=== PATIENT | male | born 1990 | race Hispanic/Latino ===

== ENCOUNTER 2018-08-26 21:26 | Emergency (ER) | payer SELFPAY ==
[~2018-08-26] VITALS: Ht 177.8 cm; Wt 62.1 kg
--- OUTSIDE RECORDS SUMMARY | 2018-08-26 21:28 | XMS REPORT ---
Author Author [facility] Address Unknown Phone Unavailable Care Team Providers Care Paster Supervisor Name Role Phone Unavailable Unavailable Payers Payer Name Policy Type Policy Number Effective Date Expiration Date Problems This patient has no known problems. Allergies, Adverse Reactions, Alerts Allergy Name Allergy Type Status Severity Reaction(s) Onset Date Inactive Date Treating Clinician Comments phenytoin DA Active SV 2018-05-02 00:00:00 divalproex sodium DA Active MO 2018-05-02 00:00:00 phenytoin DA Active SV 2017-09-02 00:00:00 divalproex sodium DA Active MO 2017-09-02 00:00:00 Medications This patient has no known medications. Results Test Description Test Time Test Comments Text Results Atomic Results Result Comments BASIC METABOLIC PANEL 2018-08-10 20:40:00 SODIUM (test code=NA) 139 mmol/L 136-145 POTASSIUM (test code=K) 3.7 mmol/L 3.5-5.1 CHLORIDE (test code=CL) 106.0 mmol/L 98-107 CARBON DIOXIDE (test code=CO2) 25.0 mmol/L 21-32 ANION GAP (test code=GAP) 11.7 10-20 GLUCOSE (test code=GLU) 139 mg/dL 74-106 BLOOD UREA NITROGEN (test code=BUN) 12 mg/dL 7-18 GLOMERULAR FILTRATION RATE (test code=GFR) > 60 mL/min >=60 Estimated GFR by using Modified MDRD formula.Chronic kidney disease is defined as either kidney damageor GFR <60 mL/min/1.73 m2 for >3 months. CREATININE (test code=CREAT) 1.00 mg/dL 0.7-1.3 BUN/CREATININE RATIO (test code=BUN/CREA) 12.0 10-20 CALCIUM (test code=CA) 9.1 mg/dL 8.5-10.1 CBC W/O [id number] 20:35:00* Test Item Value Reference Range Comments WHITE BLOOD CELL (test code=WBC) 6.9 K/mm3 4.5-12.5 RED BLOOD CELL (test code=RBC) 4.02 mill/mm3 4.0-5.8 HEMOGLOBIN (test code=HGB) 13.7 gram/dL 13.0-17.5 HEMATOCRIT (test code=HCT) 40.3 % 42.0-52.0 MEAN CELL VOLUME (test code=MCV) 100.2 fL 80-98 MEAN CELL HGB (test code=MCH) 34.1 picogram 27.0-33.0 MEAN CELL HGB CONCETRATION (test code=MCHC) 34.0 gram/dL 33.0-36.0 RED CELL DISTRIBUTION WIDTH (test code=RDW) 12.9 % 11.6-16.2 PLATELET COUNT (test code=PLT) 207 K/mm3 150-450 MEAN PLATELET VOLUME (test code=MPV) 10.3 fL 6.7-11.0 [id number] 21:00:00* Test Item Value Reference Range Comments GLUBED (test code=GLUBED) 78 mg/dL 74-106 Performed by certified mitering machine operator at [facility] BASIC METABOLIC [id number] 19:01:00* Test Item Value Reference Range Comments SODIUM (test code=NA) 140 mmol/L 136-145 POTASSIUM (test code=K) 3.8 mmol/L 3.5-5.1 CHLORIDE (test code=CL) 105.0 mmol/L 98-107 CARBON DIOXIDE (test code=CO2) 26.0 mmol/L 21-32 ANION GAP (test code=GAP) 12.8 10-20 GLUCOSE (test code=GLU) 189 mg/dL 74-106 BLOOD UREA NITROGEN (test code=BUN) 7 mg/dL 7-18 GLOMERULAR FILTRATION RATE (test code=GFR) > 60 mL/min >=60 Estimated GFR by using Modified MDRD formula.Chronic kidney disease is defined as either kidney damageor GFR <60 mL/min/1.73 m2 for >3 months. CREATININE (test code=CREAT) 0.90 mg/dL 0.7-1.3 BUN/CREATININE RATIO (test code=BUN/CREA) 7.4 10-20 CALCIUM (test code=CA) 8.9 mg/dL 8.5-10.1 BASIC METABOLIC [id number] 18:53:00* Test Item Value Reference Range Comments SODIUM (test code=NA) 140 mmol/L 136-145 POTASSIUM (test code=K) 3.8 mmol/L 3.5-5.1 CHLORIDE (test code=CL) 105.0 mmol/L 98-107 CARBON DIOXIDE (test code=CO2) mmol/L 21-32 ANION GAP (test code=GAP) 10-20 GLUCOSE (test code=GLU) mg/dL 74-106 BLOOD UREA NITROGEN (test code=BUN) mg/dL 7-18 GLOMERULAR FILTRATION RATE (test code=GFR) mL/min >=60 CREATININE (test code=CREAT) mg/dL 0.7-1.3 BUN/CREATININE RATIO (test code=BUN/CREA) 10-20 CALCIUM (test code=CA) 8.9 mg/dL 8.5-10.1 CBC W/O [id number] 18:37:00* Test Item Value Reference Range Comments WHITE BLOOD CELL (test code=WBC) 6.1 K/mm3 4.5-12.5 RED BLOOD CELL (test code=RBC) 4.49 mill/mm3 4.0-5.8 HEMOGLOBIN (test code=HGB) 15.3 gram/dL 13.0-17.5 HEMATOCRIT (test code=HCT) 45.7 % 42.0-52.0 MEAN CELL VOLUME (test code=MCV) 101.8 fL 80-98 MEAN CELL HGB (test code=MCH) 34.1 picogram 27.0-33.0 MEAN CELL HGB CONCETRATION (test code=MCHC) 33.5 gram/dL 33.0-36.0 RED CELL DISTRIBUTION WIDTH (test code=RDW) 12.4 % 11.6-16.2 PLATELET COUNT (test code=PLT) 213 K/mm3 150-450 MEAN PLATELET VOLUME (test code=MPV) 10.0 fL 6.7-11.0
[2018-08-26 22:12] LABS: BASOPHILS # (AUTO) 0.1 (0.0-0.1); BASOPHILS % 0.7 % (0.0-1.0); EOSINOPHILS # (AUTO) 0.1 (0.0-0.4); EOSINOPHILS % 0.9 % (0.0-6.0); HEMATOCRIT 41.4 % (38.2-49.6); HEMOGLOBIN 14.4 g/dL (14.0-18.0); LYMPHOCYTES # (AUTO) 0.6 (1.0-3.2); LYMPHOCYTES % 8.8 % (18.0-39.1); MEAN CORPUSCULAR HEMOGLOBIN 34.6 pg (28-32); MEAN CORPUSCULAR HGB CONC 34.8 g/dL (31-35); MEAN CORPUSCULAR VOLUME 99.5 fL (81-99); MONOCYTES # (AUTO) 0.8 (0.2-0.8); MONOCYTES % 11.7 % (4.4-11.3); NEUTROPHILS # (AUTO) 5.4 (2.1-6.9); NEUTROPHILS % 77.3 % (38.7-80.0); PLATELET COUNT 216 x10e3/uL (140-360); RED BLOOD COUNT 4.16 x10e6/uL (4.3-5.7); RED CELL DISTRIBUTION WIDTH 12.4 % (11.7-14.4)
[2018-08-26 22:17] LABS: AMPHETAMINES SCREEN,URINE NEGATIVE (NEGATIVE); BENZODIAZEPINES SCREEN,URINE NEGATIVE (NEGATIVE); PHENCYCLIDINE SCREEN,URINE NEGATIVE (NEGATIVE)
[2018-08-26 22:20] LABS: BILIRUBIN,URINE NEGATIVE (NEGATIVE); CLARITY,URINE CLEAR (CLEAR); COLOR,URINE YELLOW (YELLOW); KETONES,URINE NEGATIVE (NEGATIVE); LEUKOCYTE ESTERASE ,URINE NEGATIVE (NEGATIVE); NITRITE,URINE NEGATIVE (NEGATIVE); PROTEIN,URINE DIPSTICK 1+ (NEGATIVE); URINE UROBILINOGEN 0.2 mg/dL (0.2 - 1)
[2018-08-26 22:29] LABS: BACTERIA,URINE RARE /HPF; EPITHELIAL CELLS,URINE RARE /LPF; WBC,URINE (MAN) 0-5 /HPF (0-5)
[2018-08-26 22:30] LABS: ALANINE AMINOTRANSFERASE 20 IU/L (0-55); ALBUMIN 4.3 g/dL (3.5-5.0); ALBUMIN/GLOBULIN RATIO 1.3 (0.8-2.0); ALKALINE PHOSPHATASE 67 IU/L (40-150); ANION GAP 21.8 mmol/L (8-16); BLOOD UREA NITROGEN 13 mg/dL (7-26); BUN/CREATININE RATIO 15 (6-25); CALCIUM 9.7 mg/dL (8.4-10.2); CARBON DIOXIDE 18 mmol/L (22-29); CHLORIDE 102 mmol/L (98-107); CREATININE, SERUM 0.87 mg/dL (0.72-1.25); EST GLOMERULAR FILTRATION RATE > 60 ML/MIN (60-); GLUCOSE 126 mg/dL (74-118); POTASSIUM 3.8 mmol/L (3.5-5.1); SODIUM 138 mmol/L (136-145)
--- NOTE | 2018-08-26 22:42 | Diagnostic Imaging Report ---
CT BRAIN WO HISTORY: Seizure, trauma COMPARISON: None. TECHNIQUE: Noncontrast axial scans were obtained from skull base to the vertex. Coronal and sagittal reconstructions obtained from the axial data. One or more of the following dose reduction techniques were used: Automated exposure control, adjustment of the mA and/or kV according to patient size, and/or utilization of iterative reconstruction technique. DISCUSSION: Scalp/Skull: Unremarkable. Brain sulci: Appropriate for patient's age. Ventricles: Normal in size and configuration. No hydrocephalus. Extra-axial spaces: No masses or fluid collections. Parenchyma: No abnormal densities. No mass, hemorrhage, or large vascular territory acute infarct. Dural sinuses: No abnormal densities. Sellar/Suprasellar region: Intact. Skull base: Intact. Incidental findings: None. IMPRESSION: No intracranial abnormalities. Signed by: Dr. Sotero Ochoa M.D. on 08/26/2018 10:39 PM
--- NOTE | 2018-08-26 22:46 | Diagnostic Imaging Report ---
CT CERVICAL SPINE WO HISTORY: Trauma COMPARISON: Concurrent head CT TECHNIQUE: CT of the cervical spine without contrast. Sagittal and coronal reformations were created. One or more of the following dose reduction techniques were used: Automated exposure control, adjustment of the mA and/or kV according to patient size, and/or utilization of iterative reconstruction technique. FINDINGS: Cervical lordosis is slightly reversed. There is no scoliosis or subluxation. No fractures, compression deformity, or destructive osseous lesions are seen. The craniocervical junction is intact. No gross spinal canal masses are seen. The paravertebral and paraspinal soft tissues are unremarkable. The disc spaces are preserved. Mild scarring and paraseptal emphysematous changes in the lung apices. IMPRESSION: No acute osseous abnormalities. Signed by: Dr. Sotero Ochoa M.D. on 08/26/2018 10:42 PM
== END 2018-08-26 23:05 | disposition home or self-care (01) ==
LOC: ER 21:26
DX: G40.409 Other generalized epilepsy and epileptic syndromes, not intractable, without status epilepticus (principal); S00.93XA Contusion of unspecified part of head, initial encounter; Z88.8 Allergy status to other drugs, medicaments and biological substances
CPT/HCPCS: 36415; 70450; 72125; 80053; 80307; 81001; 85025; 99284

== ENCOUNTER 2019-11-26 23:13 | Emergency (ER) | payer SELFPAY ==
[~2019-11-26] VITALS: Ht 177.8 cm; Wt 62.1 kg
[2019-11-26] MEDS ORDERED: LEVETIRACETAM 500 MG TAB PO ONE (23:30)
--- NOTE | 2019-11-26 23:32 | Emergency Department Note ---
History of Present Illnes History of Present Illness Chief Complaint: Seizure History of Present Illness This is a 29 year old male PRESENTS TO ED WITH REPORT OF WITNESSED SEIZURE X1 MINUTE AT [facility]; EMS REPORTS PT WAS POST ICTAL ON ARRIVAL; PT IS ALERT AND ORIENTED TIMES 3 NOW, STATES MISSED HIS MORNING DOES OF KEPPRA TODAY AND ONLY TOOK HIS EVENING DOSE, STATES HE IS SUPPOSED TO TAKE 100O MG OF KEPPRA TWICE A DAY. . Historian: Patient Arrival Mode: [place] Onset (how long ago): minute(s) (30) Location: ALL OVER Quality: SEIZURE ACITIVITY Radiation: Reports non-radiation Severity: moderate Onset quality: sudden Duration (how long): hour(s) (30 MINUTS AGO) Progression: resolved Context: Reports non-compliance w/ medications (MISSED HIS MORNING DOSE OF KEPPRA TODAY); Denies recent illness, Denies recent surgery, Denies trauma/injury Associated symptoms: Reports denies other symptoms Treatments prior to arrival: none Past Medical/Family History Physician Review I have reviewed the patient's past medical and family history. Any updates have been documented here. Past Medical History Recent Fever: No Clinical Suspicion of Infectio: No New/Unexplained Change in Ment: No Past Medical History: Seizure Disorder Other Medical History: EPILEPSY Past Surgical History: None Social History Smoking Cessation: Never Smoker Alcohol Use: None Any Illegal Drug Use: No Other Last Tetanus: UNK Review of Systems Review of Systems Constitutional: Reports no symptoms EENTM: Reports no symptoms Cardiovascular: Reports no symptoms Respiratory: Reports no symptoms Gastrointestinal: Reports no symptoms Genitourinary: Reports no symptoms Musculoskeletal: Reports no symptoms Integumentary: Reports no symptoms Neurological: Reports as per HPI Psychological: Reports no symptoms Endocrine: Reports no symptoms Hematological/Lymphatic: Reports no symptoms Physical Exam Related Data Allergies: Coded Allergies: divalproex sodium (Verified Allergy, Unknown, 10/25/16) phenytoin (Verified Allergy, Unknown, 10/25/16) Triage Vital Signs Vital Signs Date Time Temp Pulse Resp B/P (MAP) Pulse Ox O2 Delivery O2 Flow Rate FiO2 11/26/19 23:18 99.2 92 19 133/96 100 Room Air Vital signs reviewed: Yes Physical Exam CONSTITUTIONAL Constitutional: Present well-developed, Present well-nourished HENT HENT: Present normocephalic, Present atraumatic, Present oropharynx clear/moist, Present nose normal HENT L/R: Present left ext ear normal, Present right ext ear normal EYES Eyes: Reports PERRL, Reports conjunctivae normal NECK Neck: Present ROM normal PULMONARY Pulmonary: Present effort normal, Present breath sounds normal CARDIOVASCULAR Cardiovascular: Present regular rhythm, Present heart sounds normal, Present capillary refill normal, Present normal rate GASTROINTESTINAL Abdominal: Present soft, Present nontender, Present bowel sounds normal GENITOURINARY Genitourinary: Present exam deferred SKIN Skin: Present warm, Present dry MUSCULOSKELETAL Musculoskeletal: Present ROM normal NEUROLOGICAL Neurological: Present alert, Present oriented x 3, Present no gross motor or sensory deficits PSYCHOLOGICAL Psychological: Present mood/affect normal, Present judgement normal Results Laboratory Laboratory Laboratory Tests Test 11/27/19 00:20 11/26/19 23:30 Urine Color Vanessa (YELLOW) Urine Clarity Sl cloudy (CLEAR) Urine pH 6 (5 - 7) Urine Specific [place] 1.030 (1.010-1.025) Urine Protein 2+ (NEGATIVE) Urine Glucose (UA) Negative (NEGATIVE) Urine Ketones Trace (NEGATIVE) Urine Blood Negative (NEGATIVE) Urine Nitrite Negative (NEGATIVE) Urine Bilirubin Small (NEGATIVE) Urine Urobilinogen 1 mg/dL (0.2 - 1) Urine Leukocyte Esterase Negative (NEGATIVE) Urine RBC 0-5 /HPF (0-5) Urine WBC 0-5 /HPF (0-5) Urine Epithelial Cells Few /LPF (NONE) Urine Bacteria Few /HPF (NONE) Urine Mucus Many (RARE) Urine Opiates Screen Negative (NEGATIVE) Urine Methadone Screen Negative (NEGATIVE) Urine Barbiturates Screen Negative (NEGATIVE) Urine Phencyclidine Screen Negative (NEGATIVE) Urine Amphetamines Screen Negative (NEGATIVE) Urine Methamphetamines Screen Negative (NEGATIVE) Urine Benzodiazepines Screen Negative (NEGATIVE) Urine Cocaine Screen Negative (NEGATIVE) Urine Cannabinoids Screen Positive (NEGATIVE) White Blood Count 6.29 x10e3/uL (4.8-10.8) Red Blood Count 4.06 x10e6/uL (4.3-5.7) Hemoglobin 13.7 g/dL (14.0-18.0) Hematocrit 39.5 % (38.2-49.6) Mean Corpuscular Volume 97.3 fL (81-99) Mean Corpuscular Hemoglobin 33.7 pg (28-32) Mean Corpuscular Hemoglobin Concent 34.7 g/dL (31-35) Red Cell Distribution Width 13.1 % (11.7-14.4) Platelet Count 197 x10e3/uL (140-360) Neutrophils (%) (Auto) 81.1 % (38.7-80.0) Lymphocytes (%) (Auto) 7.8 % (18.0-39.1) Monocytes (%) (Auto) 9.9 % (4.4-11.3) Eosinophils (%) (Auto) 0.5 % (0.0-6.0) Basophils (%) (Auto) 0.5 % (0.0-1.0) Neutrophils # (Auto) 5.1 (2.1-6.9) Lymphocytes # (Auto) 0.5 (1.0-3.2) Monocytes # (Auto) 0.6 (0.2-0.8) Eosinophils # (Auto) 0.0 (0.0-0.4) Basophils # (Auto) 0.0 (0.0-0.1) Absolute Immature Granulocyte (auto 0.01 x10e3/uL (0-0.1) Sodium Level 140 mmol/L (136-145) Potassium Level 4.1 mmol/L (3.5-5.1) Chloride Level 104 mmol/L (98-107) Carbon Dioxide Level 21 mmol/L (22-29) Anion Gap 19.1 mmol/L (8-16) Blood Urea Nitrogen 8 mg/dL (7-26) Creatinine 0.94 mg/dL (0.72-1.25) Estimat Glomerular Filtration Rate > 60 ML/MIN (60-) BUN/Creatinine Ratio 9 (6-25) Glucose Level 115 mg/dL (74-118) Bedside Glucose 120 mg/dL (70-120) Calcium Level 9.7 mg/dL (8.4-10.2) Total Bilirubin 1.0 mg/dL (0.2-1.2) Aspartate Amino Transf (AST/SGOT) 34 IU/L (5-34) Alanine Aminotransferase (ALT/SGPT) 21 IU/L (0-55) Alkaline Phosphatase 74 IU/L (40-150) Total Protein 7.7 g/dL (6.5-8.1) Albumin 4.7 g/dL (3.5-5.0) Globulin 3.0 g/dL (2.3-3.5) Albumin/Globulin Ratio 1.6 (0.8-2.0) Lab results reviewed: Yes Assessment & Plan Medical Decision Making MDM PT S/P WITNESSED SEIZURE, MISSED A DOSE OF HIS KEPPRA TODAY CBC, CMP, UA, UDS ORDERED TO EVAL FOR ELECTROLYTE ABNORMALITY, DRUG USE KEPPRA 100O MG PO ORDERED Assessment & Plan Final Impression: (1) Seizure (2) Seizure disorder Depart Disposition: HOME, SELF-CARE Last Vital Signs Date Time Temp Pulse Resp B/P (MAP) Pulse Ox O2 Delivery O2 Flow Rate FiO2 11/26/19 23:18 99.2 92 19 133/96 100 Room Air Medications in the ED Levetiracetam 1,000 mg ONCE ONCE PO ; Start 11/26/19 at 23:30; Stop 11/26/19 at 23:31; Status UNV MARIN DAWKINS MD Nov 26, 2019 23:32
[2019-11-26 23:37] LABS: BASOPHILS % 0.5 % (0.0-1.0); EOSINOPHILS % 0.5 % (0.0-6.0); HEMATOCRIT 39.5 % (38.2-49.6); HEMOGLOBIN 13.7 g/dL (14.0-18.0); LYMPHOCYTES # (AUTO) 0.5 (1.0-3.2); LYMPHOCYTES % 7.8 % (18.0-39.1); MEAN CORPUSCULAR HEMOGLOBIN 33.7 pg (28-32); MEAN CORPUSCULAR HGB CONC 34.7 g/dL (31-35); MEAN CORPUSCULAR VOLUME 97.3 fL (81-99); MONOCYTES # (AUTO) 0.6 (0.2-0.8); MONOCYTES % 9.9 % (4.4-11.3); NEUTROPHILS # (AUTO) 5.1 (2.1-6.9); NEUTROPHILS % 81.1 % (38.7-80.0); PLATELET COUNT 197 x10e3/uL (140-360); RED BLOOD COUNT 4.06 x10e6/uL (4.3-5.7); RED CELL DISTRIBUTION WIDTH 13.1 % (11.7-14.4)
[2019-11-26 23:57] LABS: ALANINE AMINOTRANSFERASE 21 IU/L (0-55); ALBUMIN 4.7 g/dL (3.5-5.0); ALBUMIN/GLOBULIN RATIO 1.6 (0.8-2.0); ALKALINE PHOSPHATASE 74 IU/L (40-150); ANION GAP 19.1 mmol/L (8-16); BLOOD UREA NITROGEN 8 mg/dL (7-26); BUN/CREATININE RATIO 9 (6-25); CALCIUM 9.7 mg/dL (8.4-10.2); CARBON DIOXIDE 21 mmol/L (22-29); CHLORIDE 104 mmol/L (98-107); CREATININE, SERUM 0.94 mg/dL (0.72-1.25); EST GLOMERULAR FILTRATION RATE > 60 ML/MIN (60-); GLUCOSE 115 mg/dL (74-118); POTASSIUM 4.1 mmol/L (3.5-5.1); SODIUM 140 mmol/L (136-145)
[2019-11-27] MEDS ORDERED: SODIUM CHLORIDE 0.9% 1000ML 1,000 ML IV ONE
[2019-11-27 00:28] LABS: AMPHETAMINES SCREEN,URINE NEGATIVE (NEGATIVE); BENZODIAZEPINES SCREEN,URINE NEGATIVE (NEGATIVE); BILIRUBIN,URINE SMALL (NEGATIVE); CLARITY,URINE SL CLOUDY (CLEAR); COLOR,URINE AMBER (YELLOW); KETONES,URINE TRACE (NEGATIVE); LEUKOCYTE ESTERASE ,URINE NEGATIVE (NEGATIVE); NITRITE,URINE NEGATIVE (NEGATIVE); PHENCYCLIDINE SCREEN,URINE NEGATIVE (NEGATIVE); PROTEIN,URINE DIPSTICK 2+ (NEGATIVE); URINE UROBILINOGEN 1 mg/dL (0.2 - 1)
[2019-11-27 00:33] LABS: BACTERIA,URINE FEW /HPF; EPITHELIAL CELLS,URINE FEW /LPF; MUCUS,URINE MANY (RARE); RBC,URINE 0-5 /HPF (0-5); WBC,URINE (MAN) 0-5 /HPF (0-5)
[2019-11-27 00:49] VITALS: BP 124/79
--- OUTSIDE RECORDS SUMMARY | 2019-11-27 01:26 | XMS REPORT | Continuity of Care Document ---
Author Author [facility] t Organization [facility] Address [address] [place] [address] Phone Unavailable Care Team Providers Care Finance Specialist Name Role Phone NO, PCP PCP Unavailable Elma DAWKINS Unavailable Payers Payer Name Policy Type Policy Number Effective Date Expiration Date S ource Self Pay [facility] Problems This patient has no known problems. Allergies, Adverse Reactions, Alerts Allergy Name Allergy Type Status Severity Reaction(s) Onset Date Inacti ve Date Treating Clinician Comments Source phenytoin DA Active SV 2019-11-21 00:00:00 [facility] divalproex sodium DA Active MO 2019-11-21 00:00:00 [facility] phenytoin DA Active SV 2019-08-16 00:00:00 [facility] divalproex sodium DA Active MO 2019-08-16 00:00:00 [facility] phenytoin DA Active SV 2019-07-16 00:00:00 [facility] divalproex sodium DA Active MO 2019-07-16 00:00:00 [facility] phenytoin DA Active SV 2019-05-01 00:00:00 [facility] divalproex sodium DA Active MO 2019-05-01 00:00:00 [facility] phenytoin DA Active SV 2019-03-02 00:00:00 [facility] divalproex sodium DA Active MO 2019-03-02 00:00:00 [facility] phenytoin DA Active SV 2018-11-28 00:00:00 [facility] divalproex sodium DA Active MO 2018-11-28 00:00:00 [facility] phenytoin DA Active SV 2018-05-02 00:00:00 [facility] divalproex sodium DA Active MO 2018-05-02 00:00:00 [facility] phenytoin DA Active SV 2017-09-02 00:00:00 [facility] divalproex sodium DA Active MO 2017-09-02 00:00:00 [facility] Phenytoin Allergy to Substance Active 2016-10-25 00:00:00 [facility] Divalproex sodium Allergy to Substance Active 2016-10-25 00 :00:00 [facility] Medications This patient has no known medications. Procedures Procedure Date / Time Performed Performing Clinician [facility] e Computed tomography of brain without radiopaque contrast 201 11-17-15 00:00:00 DAWKINSMARIN [facility] Computed tomography of cervical spine without contrast 08-26 00:00:00 DAWKINSMARIN MASON [facility] Encounters Start Date/Time End Date/Time Encounter Type Admission Type [facility] Care Department Encounter ID Source 2018-08-26 21:26:00 2018-08-26 23:05:00 Departed Emergency Room [address] [facility] [id number] [facility] Results Test Description Test Time Test Comments Results Result Comments Source BASIC METABOLIC PANEL 2019-09-11 21:29:00 Test Item SODIUM (test code = NA) 139 mmol/L 136-145 N POTASSIUM (test code = K) 3.8 mmol/L 3.5-5.1 N CHLORIDE (test code = CL) 104.0 mmol/L 98-107 N CARBON DIOXIDE (test code = CO2) 29.0 mmol/L 21-32 N ANION GAP (test code = GAP) 9.8 10-20 L GLUCOSE (test code = GLU) 90 mg/dL 74-106 N BLOOD UREA NITROGEN (test code = BUN) 12 mg/dL 7-18 N GLOMERULAR FILTRATION RATE (test code = GFR) > 60 mL/min >=60 Estimated GFR by using Modified MDRD formula.Chronic kidney disease is defined as either kidney damageor GFR <60 mL/min/1.73 m2 for >3 months. CREATININE (test code = CREAT) 0.70 mg/dL 0.7-1.3 N BUN/CREATININE RATIO (test code = BUN/CREA) 16.9 10-20 N CALCIUM (test code = CA) 9.0 mg/dL 8.5-10.1 N BASIC METABOLIC [id number] 21:24:00* Test Item Value Reference Range Interpretation Comments SODIUM (test code = NA) 139 mmol/L 136-145 N POTASSIUM (test code = K) 3.8 mmol/L 3.5-5.1 N CHLORIDE (test code = CL) 104.0 mmol/L 98-107 N CARBON DIOXIDE (test code = CO2) mmol/L 21-32 ANION GAP (test code = GAP) 10-20 GLUCOSE (test code = GLU) mg/dL 74-106 BLOOD UREA NITROGEN (test code = BUN) mg/dL 7-18 GLOMERULAR FILTRATION RATE (test code = GFR) mL/min >=60 CREATININE (test code = CREAT) mg/dL 0.7-1.3 BUN/CREATININE RATIO (test code = BUN/CREA) 10-20 CALCIUM (test code = CA) mg/dL 8.5-10.1 CBC W/O [id number] 21:19:00* Test Item Value Reference Range Interpretation Comments WHITE BLOOD CELL (test code = WBC) 9.1 K/mm3 4.5-12.5 N RED BLOOD CELL (test code = RBC) 4.17 mill/mm3 4.0-5.8 N HEMOGLOBIN (test code = HGB) 14.2 gram/dL 13.0-17.5 N HEMATOCRIT (test code = HCT) 41.5 % 42.0-52.0 L MEAN CELL VOLUME (test code = MCV) 99.5 fL 80-98 H MEAN CELL HGB (test code = MCH) 34.1 picogram 27.0-33.0 H MEAN CELL HGB CONCETRATION (test code = MCHC) 34.2 gram/dL 33.0-36. 0 N RED CELL DISTRIBUTION WIDTH (test code = RDW) 12.3 % 11.6-16. 2 N PLATELET COUNT (test code = PLT) 244 K/mm3 150-450 N MEAN PLATELET VOLUME (test code = MPV) 9.8 fL 6.7-11.0 N - CT MAXIFAC W/O [id number] 21:06:00 Name: KIMBERLY FREEDMAN [facility] : 1990 Age/S: 29 / M [address] [facility] Unit #: [id number] Loc: [place], [place] [address] Phys: Delfina Guzman DO Acct: [id number] Dis Date: Status: REG ER PHONE #: [phone] Exam Date: 09/11/20192050 FAX #: [phone] Reason: fall, head trauma EXAMS: CPT CODE: [id number] [place] MAXIFAC [place] [address] HISTORY: Seizure TECHNIQUE: Noncontrast 2.[address] of the head, face, and cervical spine. Examination acquired within 24 hours of arrival. Automated exposure control for dose reduction. COMPARISON: None FINDINGS: No lacerations or contusions of the scalp or facial soft tissues. Calvarium and skull base are intact. The facial bones, including the mandible, are within normal limits. Specifically, there is no evidence of fracture, dislocation, or aggressive osseous lesions. No acute hemorrhage. No intracranial mass, mass effect, or midline shift. No effacement of the sulci or benjamin-white matter interface. No cortical atrophy. No signs of white matter small-vessel disease. No hydrocephalus.. No extra-axial fluid collection. Visualized paranasal sinuses are clear. Mastoid air cells and middle ear cavities are clear. The globes are normal in size, contour, and position. The course and caliber of the optic nerve sheath complex is within normal limits. The extraocular muscles, intraconal fat, and extraconal fat are within normal limits. The lacrimal glands appear normal. The orbital sanders and optic canals are normal. No acute fracture of the cervical spine. No subluxation. Craniocervical and cervicothoracic santo culations are appropriate. Vertebral body heights are preserved. Intervertebral disc heights are preserved. There is a small vertebral body osteophyte on C5 causing mild right-sided foraminal narrowing at C5- C6. No prevertebral or paraspinal soft tissue abnormality. Lung apices are clear. Mild paraseptal and posterior is seen in the lung apices. PAGE 1 Signed Report (CONTINUED) Name: KIMBERLY FREEDMAN [facility] : 1990 Age/S: 29 / M [address] [facility] #: [id number] Loc: [place] [address] P hys: Delfina Guzman DO Acct: [id number] Dis Date: Status: REG ER PHONE #: [phone] Exam Date: 09/11/20192050 F AX #: [phone] Reason: fall, head trauma EXAMS: CPT CODE: [id number] CT MAXIFAC W/[place] CNT [address] <Continued> IMPRESSION: No evidence of acute int racranial injury and no facial fractures are seen. Very mild deg enerative changes cervical spine but no fracture or malalignment. Location: [facility] at 2106 Reported and signed by: Noé Mcgrath MD CC: Delfina Guzman DO; Jonathan Duffy MD Technologist:RT ASHLEY(R) CT CTDI: DLP: Trnscb Date/Time: 09/11/2019 (2105) [email or web address] Orig Print D/T: S: 09/11/2019 (2108) PAGE 2 Signed Report - CT C-SPINE W/O [id number] 21:06:00 Name: KIMBERLY FREEDMAN [facility] : 1990 Age/S: 29 / M [address] Unit #: [id number] Loc: [place] [address] Phys: [place] Guzman DO Acct: [id number] Di s Date: Status: REG ER PHONE #: Exam Date: 09/11/20192050 FAX #: [phone] Reason: NECK PAIN EXAMS: CPT CODE: [id number] CT C-SPINE W/O CONTRAST 18921 HISTORY: Seizure TECHNIQUE: Noncontrast 2.[address] of the head, face, and cervical spine. Examination acquired within 24 hours of arrival. Automated exposure control for dose reduction. COMPARISON: None FI NDINGS: No lacerations or contusions of the scalp or facial soft t issues. Calvarium and skull base are intact. The facial bon es, including the mandible, are within normal limits. Specifically, there is no evidence of fracture, dislocation, or aggressive osseous lesions. No acute hemorrhage. No intracranial mass, mass effect, or midline shift. No effacement of the sulci or benjamin-white matter interface. No cortical atrophy. No signs of white matter small-vessel disease. No hydrocephalus.. No extra-axial fluid collection. Vis ualized paranasal sinuses are clear. Mastoid air cells and middle ear cav ities are clear. The globes are normal in size, contour, and posi tion. The course and caliber of the optic nerve sheath complex is within normal limits. The extraocular muscles, intraconal fat, and extraconal fa t are within normal limits. The lacrimal glands appear normal. The orbit al sanders and optic canals are normal. No acute fracture of t he cervical spine. No subluxation. Craniocervical and cervicothoracic santo culations are appropriate. Vertebral body heights are preserved. Intervertebral disc heights are preserved. There is a small vertebral body osteophyte on C5 causing mild right-sided foraminal narrowing at C5- C6. No prevertebral or paraspinal soft tissue abnormality. Lung apices are clear. Mild paraseptal and posterior is seen in the lung apices. PAGE 1 Signed Report (CONTINUED) Name: KIMBERLY FREEDMAN [facility] : 1990 Age/S: 29 / M [address] [facility] Unit #: [id number] Loc: [place] [address] P hys: ThomasDelfina DO Acct: [id number] Dis Date: Status: REG ER PHONE #: [phone] Exam Date: 09/11/20192050 F AX #: [phone] Reason: NECK PAIN EXAMS: CPT CODE: [id number] CT C-SPINE W/O CONTRAST 54471 <Continued> IMPRESSION: No evidence of acute int racranial injury and no facial fractures are seen. Very mild deg enerative changes cervical spine but no fracture or malalignment. Location: [facility] at 2105 Reported and signed by: Noé Mcgrath MD CC: Delfina Guzman DO; Jonathan Duffy MD Technologist:SUPA REDDY, RT(R) CT CTDI: DLP: Trnscb Date/Time: 09/11/2019 (2105) [email or web address] Orig Print D/T: S: 09/11/2019 (2108) PAGE 2 Signed Report - CT HEAD/BRAIN W/O [id number] 21:06:00 Name: KIMBERLY FREEDMAN [facility] : 1990 Age/S: 29 / M [address] [facility] Unit #: [id number] Loc: [place] [address] Phys: [place] Guzman DO Acct: [id number] Di s Date: Status: REG ER PHONE #: Exam Date: 09/11/20192050 FAX #: Reason: Seizure EXAMS: CPT CODE: [id number] CT HEAD/BRAIN W/O CONT 95779 HISTORY: Seizure TECHNIQUE: Noncontrast 2.[address] of the head, face, and cervical spine. Examination acquired within 24 hours of arrival. Automated expo sure control for dose reduction. COMPARISON: None FI NDINGS: No lacerations or contusions of the scalp or facial soft t issues. Calvarium and skull base are intact. The facial bon es, including the mandible, are within normal limits. Specifically, there is no evidence of fracture, dislocation, or aggressive osseous lesions. No acute hemorrhage. No intracranial mass, mass effect, or midline shift. No effacement of the sulci or benjamin-white matter interface. No cortical atrophy. No signs of white matter small-vessel disease. No hydrocephalus.. No extra-axial fluid collection. Vis ualized paranasal sinuses are clear. Mastoid air cells and middle ear cav ities are clear. The globes are normal in size, contour, and posi tion. The course and caliber of the optic nerve sheath complex is within normal limits. The extraocular muscles, intraconal fat, and extraconal fa t are within normal limits. The lacrimal glands appear normal. The orbit al sanders and optic canals are normal. No acute fracture of t he cervical spine. No subluxation. Craniocervical and cervicothoracic santo culations are appropriate. Vertebral body heights are preserved. Intervertebral disc heights are preserved. There is a small vertebral body osteophyte on C5 causing mild right-sided foraminal narrowing at C5- C6. No prevertebral or paraspinal soft tissue abnormality. Lung apices are clear. Mild paraseptal and posterior is seen in the lung apices. PAGE 1 Signed Report (CONTINUED) Name: KIMBERLY FREEDMAN [facility] : 1990 Age/S: 29 / M [address] [facility] Unit #: [id number] Loc: [place] [address] P hys: Delfina Guzman DO Acct: [id number] Dis Date: Status: REG ER PHONE #: [phone] Exam Date: 09/11/20192050 F AX #: [phone] Reason: Seizure EXAMS: CPT CODE: [id number] CT HEAD/BRAIN W/O CONT 51022 <Continued> IMPRESSION: No evidence of acute int racranial injury and no facial fractures are seen. Very mild deg enerative changes cervical spine but no fracture or malalignment. Location: [facility] at 2105 Reported and signed by: Noé Mcgrath MD CC: Delfina Guzman DO; Jonathan Duffy MD Technologist:RT ASHLEY(R) CT CTDI: DLP: Trnscb Date/Time: 09/11/2019 (2105) [email or web address] Orig Print D/T: S: 09/11/2019 (2108) PAGE 2 Signed Report - XR T-SPINE 3 [id number] 20:45:00 FAX: Delfina Guzman DO [place]: B St: REG FAX: Jonathan Duffy MD Name: KIMBERLY FREEDMAN [facility] : 1990 Age/S: 29/M [address] Unit #: [id number] Loc: [place] [address] Phys: Delfina Guzman DO Acct: [id number] Dis Date: Status: REG ER PHONE #: [phone] Exam Date: 09/11/20192022 FAX #: [phone] Reason: back pain EXAMS: CPT CODE: [id number] XR T-SPINE 3 VIEWS 01282 HISTORY: back pain EXAM: AP, lateral, and swimmers views of the thoracic spine. Comparison: None FIND INGS: No acute fracture or subluxation. Vertebral body alignment is satisfactory. Vertebral body heights are preserved. Disc spaces are preserved. No paraspinal soft tissue contour abnormal ity. Visualized thorax is within normal limits. IMPRESSION : Negative radiographic examination of the thoracic spine. Loc ation: [facility] at 2044 Reported and signed by: Noé Mcgrath MD CC: Delfina Guzman DO; Jonathan Duffy MD Technologist: RT Partha(R Trnscrd Date/Time/By: (2044) : By: [email or web address] Orig Print D/T: S: 09/11/2019 (2047) PAGE 1 Signed Report BASIC METABOLIC [id number] 04:48:00* Test Item Value Reference Range Interpretation Comments SODIUM (test code = NA) 139 mmol/L 136-145 N POTASSIUM (test code = K) 3.4 mmol/L 3.5-5.1 L CHLORIDE (test code = CL) 105.0 mmol/L 98-107 N CARBON DIOXIDE (test code = CO2) 25.0 mmol/L 21-32 N ANION GAP (test code = GAP) 12.4 10-20 N GLUCOSE (test code = GLU) 86 mg/dL 74-106 N BLOOD UREA NITROGEN (test code = BUN) 6 mg/dL 7-18 L GLOMERULAR FILTRATION RATE (test code = GFR) > 60 mL/min >=60 Estimated GFR by using Modified MDRD formula.Chronic kidney disease is defined as either kidney damageor GFR <60 mL/min/1.73 m2 for >3 months. CREATININE (test code = CREAT) 0.60 mg/dL 0.7-1.3 L BUN/CREATININE RATIO (test code = BUN/CREA) 9.9 10-20 L CALCIUM (test code = CA) 9.1 mg/dL 8.5-10.1 N BASIC METABOLIC [id number] 04:46:00* Test Item Value Reference Range Interpretation Comments SODIUM (test code = NA) 139 mmol/L 136-145 N POTASSIUM (test code = K) 3.4 mmol/L 3.5-5.1 L CHLORIDE (test code = CL) 105.0 mmol/L 98-107 N CARBON DIOXIDE (test code = CO2) mmol/L 21-32 ANION GAP (test code = GAP) 10-20 GLUCOSE (test code = GLU) mg/dL 74-106 BLOOD UREA NITROGEN (test code = BUN) mg/dL 7-18 GLOMERULAR FILTRATION RATE (test code = GFR) mL/min >=60 CREATININE (test code = CREAT) mg/dL 0.7-1.3 BUN/CREATININE RATIO (test code = BUN/CREA) 10-20 CALCIUM (test code = CA) mg/dL 8.5-10.1 CBC W/AUTO [id number] 04:30:00* Test Item Value Reference Range Interpretation Comments WHITE BLOOD CELL (test code = WBC) 10.7 K/mm3 4.5-12.5 N RED BLOOD CELL (test code = RBC) 3.74 mill/mm3 4.0-5.8 L HEMOGLOBIN (test code = HGB) 12.8 gram/dL 13.0-17.5 L HEMATOCRIT (test code = HCT) 37.0 % 42.0-52.0 L MEAN CELL VOLUME (test code = MCV) 98.9 fL 80-98 H MEAN CELL HGB (test code = MCH) 34.2 picogram 27.0-33.0 H MEAN CELL HGB CONCETRATION (test code = MCHC) 34.6 gram/dL 33.0-36. 0 N RED CELL DISTRIBUTION WIDTH (test code = RDW) 12.1 % 11.6-16. 2 N RED CELL DISTRIBUTION WIDTH SD (test code = RDW-SD) 44.6 fL 37 .0-51.0 N PLATELET COUNT (test code = PLT) 185 K/mm3 150-450 N MEAN PLATELET VOLUME (test code = MPV) 10.8 fL 6.7-11.0 N NEUTROPHIL % (test code = NT%) 80.9 % 39.0-69.0 H IMMATURE GRANULOCYTE % (test code = IG%) 0.3 % 0.0-5.0 N LYMPHOCYTE % (test code = LY%) 6.3 % 25.0-55.0 L MONOCYTE % (test code = MO%) 11.9 % 0.0-10.0 H EOSINOPHIL % (test code = EO%) 0.3 % 0.0-5.0 N BASOPHIL % (test code = BA%) 0.3 % 0.0-1.0 N NUCLEATED RBC % (test code = NRBC%) 0.0 % 0-0 N NEUTROPHIL # (test code = NT#) 8.68 K/mm3 1.8-7.7 H IMMATURE GRANULOCYTE # (test code = IG#) 0.03 x10 3/uL 0-0.03 N LYMPHOCYTE # (test code = LY#) 0.68 K/mm3 1.0-5.0 L MONOCYTE # (test code = MO#) 1.28 K/mm3 0-0.8 H EOSINOPHIL # (test code = EO#) 0.03 K/mm3 0.0-0.5 N BASOPHIL # (test code = BA#) 0.03 K/mm3 0.0-0.2 N NUCLEATED RBC # (test code = NRBC#) 0.00 K/mm3 0.0-0.1 N - US ABDOMEN [id number] 20:02:00 Name: KIMBERLY FREEDMAN [facility] : 1990 Age/S: 29 / M [address] [facility] Unit #: [id number] Loc: [place] [address] Phys: Marcie Lane MD Acct: [id number] Dis Date: Status: ADM IN PHONE #: [phone] Exam Date: 08/17/20191852 FAX #: [phone] Reason: EXAMEN LIVER EXAMS: CPT CODE: [id number] US ABDOMEN COMPLETE [id number] REASON FOR EXAM: EXAMEN LIVER EXAM ORDER DATE: 08/17/2019 11:17 AM Attending MFreida: Marcie Lane MD PROCEDURE: - US ABDOMEN COMPLETE Technique: Grayscale and color Doppler images of the abdomen. Comparison study: CT of the abdomen and pelvis the previous afternoon FINDINGS: Aorta and IVC: Patent and grossly normal in caliber. Liver: Size: 15.3 cm craniocaudally Parenchyma and contour: Smooth contour. Normal echogenicity. Cysts and/or masses: None. Intrahepatic bile ducts: No intrahepatic biliary ductal dilation Common bile duct: 3.1 mm in diameter. No echogenic filling defects in visualized duct. Gallbladder: Contracted (patient is not NPO) Stones/sludge: No intraluminal stones or sludge. Wall: 2.6 mm in thickness. No discontinuity. No polyps. No pericholecystic fluid. No hyperemia. Sonographic Everett's sign: Negative Portal vein: Portal vein caliber is within normal limits. Portal vein is patent with hepatopetal flow. Pancreas: Incompletely visualized. However the visualized portions are grossly within normal limits. Right kidney: parenchyma echogenicity: Normal echogenicity size: 10.9 x 4.5 x 4.4 cm stones: none cysts/masses: none hydronephrosis: none PAGE 1 Signed Report (CONTINUED) Name: KIMBERLY FREEDMAN [facility] : 1990 Age/S: 29 / M [address] Unit #: [id number] Loc: [place] [address] Phys: Marcie Lane MD Acct: [id number] Dis Date: Status: ADM IN PHONE #: [phone] Exam Date: 08/17/20191852 FAX #: [phone] Reason: EXAMEN LIVER EXAMS: CPT CODE: [id number] US ABDOMEN COMPLETE 63356 <Continued> Left kidney: parenchyma echogenicity: Normal echogenicity size: 11.2 x 6.6 x 5.4 cm stones: none cysts/masses: none hydr onephrosis: none Spleen: size: 8.1 x 3.2 x 3.6 cm cys ts/masses: Parenchyma is sonographically unremarkable. Ascites/pl eural effusions: None IMPRESSION: Sonographic ally unremarkable abdomen. Location: [facility] Electronic ally Signed by Noé Mcgrath MD on 08/17/2019 at 2001 Repo rted and signed by: Noé Mcgrath MD CC: Marcie Lane Technologist: MURALI REYES Trnscb Date/Time: 08/17/2019 (2001) [email or web address] Orig Print D/T: S: 08/17/2019 (2004) Probe: PAGE 2 Signed Report BASIC METABOLIC [id number] 05:21:00* Test Item Value Reference Range Interpretation Comments SODIUM (test code = NA) 139 mmol/L 136-145 N POTASSIUM (test code = K) 3.6 mmol/L 3.5-5.1 N CHLORIDE (test code = CL) 106.0 mmol/L 98-107 N CARBON DIOXIDE (test code = CO2) 25.0 mmol/L 21-32 N ANION GAP (test code = GAP) 11.6 10-20 N GLUCOSE (test code = GLU) 89 mg/dL 74-106 N BLOOD UREA NITROGEN (test code = BUN) 7 mg/dL 7-18 N GLOMERULAR FILTRATION RATE (test code = GFR) > 60 mL/min >=60 Estimated GFR by using Modified MDRD formula.Chronic kidney disease is defined as either kidney damageor GFR <60 mL/min/1.73 m2 for >3 months. CREATININE (test code = CREAT) 0.60 mg/dL 0.7-1.3 L BUN/CREATININE RATIO (test code = BUN/CREA) 11.5 10-20 N CALCIUM (test code = CA) 9.1 mg/dL 8.5-10.1 N BASIC METABOLIC [id number] 05:11:00* Test Item Value Reference Range Interpretation Comments SODIUM (test code = NA) 139 mmol/L 136-145 N POTASSIUM (test code = K) 3.6 mmol/L 3.5-5.1 N CHLORIDE (test code = CL) 106.0 mmol/L 98-107 N CARBON DIOXIDE (test code = CO2) mmol/L 21-32 ANION GAP (test code = GAP) 10-20 GLUCOSE (test code = GLU) mg/dL 74-106 BLOOD UREA NITROGEN (test code = BUN) mg/dL 7-18 GLOMERULAR FILTRATION RATE (test code = GFR) mL/min >=60 CREATININE (test code = CREAT) mg/dL 0.7-1.3 BUN/CREATININE RATIO (test code = BUN/CREA) 10-20 CALCIUM (test code = CA) mg/dL 8.5-10.1 CBC W/AUTO [id number] 05:04:00* Test Item Value Reference Range Interpretation Comments WHITE BLOOD CELL (test code = WBC) 16.6 K/mm3 4.5-12.5 H RED BLOOD CELL (test code = RBC) 3.95 mill/mm3 4.0-5.8 L HEMOGLOBIN (test code = HGB) 13.7 gram/dL 13.0-17.5 N HEMATOCRIT (test code = HCT) 39.3 % 42.0-52.0 L MEAN CELL VOLUME (test code = MCV) 99.5 fL 80-98 H MEAN CELL HGB (test code = MCH) 34.7 picogram 27.0-33.0 H MEAN CELL HGB CONCETRATION (test code = MCHC) 34.9 gram/dL 33.0-36. 0 N RED CELL DISTRIBUTION WIDTH (test code = RDW) 12.3 % 11.6-16. 2 N RED CELL DISTRIBUTION WIDTH SD (test code = RDW-SD) 45.3 fL 37 .0-51.0 N PLATELET COUNT (test code = PLT) 194 K/mm3 150-450 N MEAN PLATELET VOLUME (test code = MPV) 11.1 fL 6.7-11.0 H NEUTROPHIL % (test code = NT%) 87.2 % 39.0-69.0 H IMMATURE GRANULOCYTE % (test code = IG%) 0.8 % 0.0-5.0 N LYMPHOCYTE % (test code = LY%) 2.9 % 25.0-55.0 L MONOCYTE % (test code = MO%) 8.8 % 0.0-10.0 N EOSINOPHIL % (test code = EO%) 0.1 % 0.0-5.0 N BASOPHIL % (test code = BA%) 0.2 % 0.0-1.0 N NUCLEATED RBC % (test code = NRBC%) 0.0 % 0-0 N NEUTROPHIL # (test code = NT#) 14.49 K/mm3 1.8-7.7 H IMMATURE GRANULOCYTE # (test code = IG#) 0.13 x10 3/uL 0-0.03 H LYMPHOCYTE # (test code = LY#) 0.48 K/mm3 1.0-5.0 L MONOCYTE # (test code = MO#) 1.47 K/mm3 0-0.8 H EOSINOPHIL # (test code = EO#) 0.02 K/mm3 0.0-0.5 N BASOPHIL # (test code = BA#) 0.04 K/mm3 0.0-0.2 N NUCLEATED RBC # (test code = NRBC#) 0.00 K/mm3 0.0-0.1 N MANUAL DIFF REQUIRED (test code = MDIFF) NO [id number] 19:24:00* Test Item Value Reference Range Interpretation Comments GLYCOSYLATED HEMOGLOBIN (HA1C) (test code = GLYHGB) 4.6 % HbA1 SUGGESTED DIAGNOSIS: HbA1C (%) Diabetic >6.4Prediabetes 5.7 - 6.4Normal <5.7 ESTIMATED AVERAGE GLUCOSE (test code = EAG) 85 MG/DL LACTIC [id number] 18:37:00* Test Item Value Reference Range Interpretation Comments LACTIC ACID (test code = LACT) 0.9 mmol/L 0.4-1.9 N URINALYSIS [id number] 17:26:00* Test Item Value Reference Range Interpretation Comments UA COLOR (test code = COLU) [place] YELLOW UA APPEARANCE (test code = APPU) CLEAR CLEAR UA GLUCOSE DIPSTICK (test code = DGLUU) 500 (3+) mg/dL NEGATIVE A UA BILIRUBIN DIPSTICK (test code = BILU) NEGATIVE mg/dL NEGATIVE UA KETONE DIPSTICK (test code = KETU) 10 (1+) mg/dL NEGATIVE A UA SPECIFIC GRAVITY (test code = SGU) 1.043 1.001-1.035 UA BLOOD DIPSTICK (test code = ELY) Negative mg/dL NEGATIVE UA PH DIPSTICK (test code = SHANNA) 6.0 5.0-8.0 UA PROTEIN DIPSTICK (test code = PROU) 70 (1+) mg/dL NEGATIVE A UA UROBILINIOGEN DIPSTICK (test code = URO) 8.0 (3+) mg/dL NEGATIVE A UA NITRITE DIPSTICK (test code = MERRITT) NEGATIVE NEGATIVE UA LEUKOCYTE ESTERASE W REFLEX (test code = LEUUR) NEGATIVE Charu/uL NEGATIVE UA WBC (test code = WBCU) 0-5 per HPF 0-5 UA RBC (test code = RBCU) 0-2 #/HPF 0-5 UA EPITHELIAL CELLS (test code = EPIU) FEW per HPF FEW UA BACTERIA (test code = BACU) FEW #/HPF NONE A UA MUCUS (test code = MUCU) MODERATE #/LPF FEW A Urine Source? Clean Catch- CT ABD PELVIS [id number] 17:25:00 Name: KIMBERLY FREEDMAN [facility] : 1990 Age/S: 29 / M [address] [facility] Unit #: [id number] Loc: [place] [address] Phys: Tahira Bowman NP Acct: [id number] Di s Date: Status: REG ER PHONE #: [phone] Exam Date: 08/16/2019 1650 FAX #: Reason: LOW ABD PAIN WITH TESTICLE SWELLING/PAIN EXAMS: CPT CODE: [id number] CT ABD PELVIS W/CONT 59906 REASON FOR EXAM: LOW ABD PAIN WITH TESTICLE SWELLING/PAIN EXAM ORDER DATE: 08/16/2019 1:34 PM Ordering MFreida: Shabbir Bowman NP PROCEDURE: Ax ial CT images were acquired through the abdomen/pelvis at 5 mm intervals. Sagittal and coronal reformatted images were generated. Automated exposu re control was utilized for this reduction. Phases of contra st: venous and delayed COMPARISON: Scrotal ultrasound earlier toda y FINDINGS: Visualized thorax: Normal Hepatobiliary system: Normal Pancreas: Normal Splee n: Normal Adrenal glands: Normal Genitourinary syste m: The scrotum is edematous. The kidneys, ureters, and bladder and prostat e are within normal limits Gastrointestinal tract and appendix: No rmal Abdominal vascular structures: Normal Peritoneu m and retroperitoneum: No free fluid or free air. No omental or mesenteri c masses. No abnormal lymph nodes. Musculoskeletal structures and abdominal wall: Normal IMPRESSION: Edema of the scrotum. The collection in the scrotal wall seen on the prior ultrasound is not clearly visualized on this exam. Intra-abdominal contents are within no rmal limits Location: [facility] PAGE 1 Si gned Report (CONTINUED) Name: KIMBERLY FREEDMAN [facility] : 1990 Age/S: 29 / M [address] [facility] Unit #: [id number] Loc: [place] [address] Phys: Shabbir Bowman [employer] Acct: [id number] Dis Date: Status: REG ER PHONE #: [phone] Exam Date: 08/16/2019 1650 FAX #: [phone] Reason: LOW ABD PAIN WITH TE STICLE SWELLING/PAIN EXAMS: CPT CODE: [id number] CT ABD PELVIS W/CONT 08228 <Continued> at 1725 Reported and signed by: Noé Mcgrath MD CC: Shabbir Bowman NP Technologist:Mary Coulter RT(R); SUPA Ordaz CTDI: DLP: Trnscb Date/Time: 08/16/2019 (1724) [email or web address] Orig Print D/T: S: 08/16/2019 (1727) PAGE 2 Signed Report LACTIC [id number] 16:04:00* Test Item Value Reference Range Interpretation Comments LACTIC ACID (test code = LACT) 2.4 mmol/L 0.4-1.9 HH Results called to [id number] by LARRY 08/16/19 1604Critical results verified and read back by Nurse? Y BASIC METABOLIC [id number] 16:01:00* Test Item Value Reference Range Interpretation Comments SODIUM (test code = NA) 137 mmol/L 136-145 N POTASSIUM (test code = K) 3.5 mmol/L 3.5-5.1 N CHLORIDE (test code = CL) 105.0 mmol/L 98-107 N CARBON DIOXIDE (test code = CO2) 21.0 mmol/L 21-32 N ANION GAP (test code = GAP) 14.5 10-20 N GLUCOSE (test code = GLU) 123 mg/dL 74-106 H BLOOD UREA NITROGEN (test code = BUN) 8 mg/dL 7-18 N GLOMERULAR FILTRATION RATE (test code = GFR) > 60 mL/min >=60 Estimated GFR by using Modified MDRD formula.Chronic kidney disease is defined as either kidney damageor GFR <60 mL/min/1.73 m2 for >3 months. CREATININE (test code = CREAT) 0.80 mg/dL 0.7-1.3 N BUN/CREATININE RATIO (test code = BUN/CREA) 9.5 10-20 L CALCIUM (test code = CA) 8.9 mg/dL 8.5-10.1 N HEPATIC FUNCTION [id number] 16:01:00* Test Item Value Reference Range Interpretation Comments TOTAL PROTEIN (test code = PROT) 7.6 gram/dL 6.4-8.2 N ALBUMIN (test code = ALB) 3.6 g/dL 3.4-5.0 N GLOBULIN (test code = GLOB) 4.0 gram/dL 2.7-4.2 N ALBUMIN/GLOBULIN RATIO (test code = A/G) 0.9 0.75-1.50 N BILIRUBIN TOTAL (test code = BILT) 1.10 mg/dL 0.0-1.0 H BILIRUBIN DIRECT (test code = BILD) 0.28 mg/dL 0.0-0.20 H SGOT/AST (test code = AST) 18 IUnit/L 15-37 N SGPT/ALT (test code = ALT) 21 IUnit/L 12-78 N ALKALINE PHOSPHATASE TOTAL (test code = ALKP) 71 IUnit/L 45-117 N Note change in reference range due to change in reagent. BASIC METABOLIC [id number] 15:51:00* Test Item Value Reference Range Interpretation Comments SODIUM (test code = NA) 137 mmol/L 136-145 N POTASSIUM (test code = K) 3.5 mmol/L 3.5-5.1 N CHLORIDE (test code = CL) 105.0 mmol/L 98-107 N CARBON DIOXIDE (test code = CO2) mmol/L 21-32 ANION GAP (test code = GAP) 10-20 GLUCOSE (test code = GLU) mg/dL 74-106 BLOOD UREA NITROGEN (test code = BUN) mg/dL 7-18 GLOMERULAR FILTRATION RATE (test code = GFR) mL/min >=60 CREATININE (test code = CREAT) mg/dL 0.7-1.3 BUN/CREATININE RATIO (test code = BUN/CREA) 10-20 CALCIUM (test code = CA) mg/dL 8.5-10.1 HEPATIC FUNCTION [id number] 15:51:00* Test Item Value Reference Range Interpretation Comments TOTAL PROTEIN (test code = PROT) gram/dL 6.4-8.2 ALBUMIN (test code = ALB) g/dL 3.4-5.0 GLOBULIN (test code = GLOB) gram/dL 2.7-4.2 ALBUMIN/GLOBULIN RATIO (test code = A/G) 0.75-1.50 BILIRUBIN TOTAL (test code = BILT) mg/dL 0.0-1.0 BILIRUBIN DIRECT (test code = BILD) mg/dL 0.0-0.20 SGOT/AST (test code = AST) IUnit/L 15-37 SGPT/ALT (test code = ALT) IUnit/L 12-78 ALKALINE PHOSPHATASE TOTAL (test code = ALKP) IUnit/L 45-117 CBC W/AUTO [id number] 15:50:00* Test Item Value Reference Range Interpretation Comments WHITE BLOOD CELL (test code = WBC) 18.4 K/mm3 4.5-12.5 H RED BLOOD CELL (test code = RBC) 4.04 mill/mm3 4.0-5.8 N HEMOGLOBIN (test code = HGB) 14.0 gram/dL 13.0-17.5 N HEMATOCRIT (test code = HCT) 40.6 % 42.0-52.0 L MEAN CELL VOLUME (test code = MCV) 100.5 fL 80-98 H MEAN CELL HGB (test code = MCH) 34.7 picogram 27.0-33.0 H MEAN CELL HGB CONCETRATION (test code = MCHC) 34.5 gram/dL 33.0-36. 0 N RED CELL DISTRIBUTION WIDTH (test code = RDW) 12.8 % 11.6-16. 2 N RED CELL DISTRIBUTION WIDTH SD (test code = RDW-SD) 47.0 fL 37 .0-51.0 N PLATELET COUNT (test code = PLT) 205 K/mm3 150-450 N MEAN PLATELET VOLUME (test code = MPV) 10.5 fL 6.7-11.0 N NEUTROPHIL % (test code = NT%) 88.6 % 39.0-69.0 H IMMATURE GRANULOCYTE % (test code = IG%) 0.8 % 0.0-5.0 N LYMPHOCYTE % (test code = LY%) 1.9 % 25.0-55.0 L MONOCYTE % (test code = MO%) 8.4 % 0.0-10.0 N EOSINOPHIL % (test code = EO%) 0.0 % 0.0-5.0 N BASOPHIL % (test code = BA%) 0.3 % 0.0-1.0 N NUCLEATED RBC % (test code = NRBC%) 0.0 % 0-0 N NEUTROPHIL # (test code = NT#) 16.28 K/mm3 1.8-7.7 H IMMATURE GRANULOCYTE # (test code = IG#) 0.15 x10 3/uL 0-0.03 H LYMPHOCYTE # (test code = LY#) 0.35 K/mm3 1.0-5.0 L MONOCYTE # (test code = MO#) 1.55 K/mm3 0-0.8 H EOSINOPHIL # (test code = EO#) 0.00 K/mm3 0.0-0.5 N BASOPHIL # (test code = BA#) 0.05 K/mm3 0.0-0.2 N NUCLEATED RBC # (test code = NRBC#) 0.00 K/mm3 0.0-0.1 N MANUAL DIFF REQUIRED (test code = MDIFF) NO - DUP AB/PEL/SC [id number] 14:49:00 Name: KIMBERLY FREEDMAN [facility] : 1990 Age/S: 29 / M [address] Unit #: [id number] Loc: [place] [address] Phys: Shabbir Bowman NP Acct: [id number] Dis Date: Status: PRE ER PHONE #: [phone] Exam Date: 08/16/2019 1431 FAX #: [phone] Reason: LOW ABD PAIN WITH TESTICLE SWELLING/PAIN EXAMS: CPT CODE: [id number] DUP AB/PEL/SC COMP [id number] REASON FOR EXAM: LOW ABD PAIN WITH TESTICLE SWELLING/PAINTEST PAIN AND SWE EXAM ORDER DATE: 08/16/2019 1:34 PM Attending MFreida: Shabbir Bowman NP PROCEDURE: - US SCROTUM AND CNTS, - DUP AB/PEL/SC COMP Technique: Duplex scan was performed using grayscale imaging as well as color Doppler and spectral Doppler imaging of the testicles and epididymides. FINDINGS: Right Testicle: Size: 4.5 x 2.0 x 2.9 cm Parenchyma: Normal homogenous echogenicity Masses/calcifications: Solitary calcification is present and is likely benign Flow: Normal blow is seen Right Epididymis: Size: 1.2 x 1.0 x 1.3 cm Masses: None Left Testicle: Size: 4.4 x 1.9 x 2.3 cm Parenchyma: Normal homogenous echogenicity Masses/calcifications: None Flow: Normal blow is seen Left Epididymis: Size: 1.1 x 1.0 x 0.9 cm Masses: None Hydrocele: None Varicocele: None Scrotal wall: There is a complex cystic area in the scrotum between the testicles measuring up to 1.9 cm in size. Additi onally the scrotal wall appears heterogenous. IMPRESSION: PAGE 1 Signed Report (CONTINUED) Name: KIMBERLY FREEDMAN [facility] : 1990 Age/S: 29 / M [address] [facility] Unit #: [id number] Loc: [place] [address] Phys: Tahira Bowman NP Acct: [id number] Di s Date: Status: PRE ER PHONE #: [phone] Exam Date: 08/16/2019 1431 FAX #: Reason: LOW ABD PAIN WITH TESTICLE SWELLING/PAIN EXAMS: CPT CODE: [id number] DUP AB/PEL/SC COMP 36626 <Continued> The testicles are sonographically unremarkable. Complex cystic area in the scrotum between the testicles with no internal flow. This may represent a developing abscess. Location: [facility] at 1449 Reported and signed by: Noé Mcgrath MD CC: Shabbir Bowman NP Technologist: TANIYA SPENCE RDMS Trnscb Date/Time: 08/16/2019 (144 ) [email or web address] Orig Print D/T: S: 08/16/2019 (4713) Prob e: PAGE 2 Signed Report - US SCROTUM AND [id number] 14:49:00 Name: KIMBERLY FREEDMAN [facility] : 1990 Age/S: 29 / M [address] Unit #: [id number] Loc: [place] [address] Phys: Shabbir Bowman NP Acct: [id number] Dis Date: Status: PRE ER PHONE #: [phone] Exam Date: 08/16/2019 1431 FAX #: [phone] Reason: LOW ABD PAIN WITH TESTICLE SWELLING/PAINTEST PA EXAMS: CPT CODE: [id number] US SCROTUM AND CNTS 94846 REASON FOR EXAM: LOW ABD PAIN WITH TESTICLE SWELLING/PAINTEST PAIN AND SWE EXAM ORDER DATE: 08/16/2019 1:34 PM Attending Nicko: Shabbir Bowman NP PROCEDURE: - US SCROTUM AND CNTS, - DUP AB/PEL/SC COMP Technique: Duplex scan was performed using grayscale imaging as well as color Doppler and spectral Doppler imaging of the testicles and epididymid es. FINDINGS: Right Testicle: Size: 4.5 x 2.0 x 2.9 cm Parenchyma: Normal homogenous echogenicity Masses/calcific ations: Solitary calcification is present and is likely benign Flow: Normal blow is seen Right Epididymis: Size: 1.2 x 1.0 x 1.3 cm Masses: None Left Testicle: Size: 4.4 x 1.9 x 2.3 cm Parenchyma: Normal homogenous echogenicity Masses/calcifications: None Flow: Normal blow is seen Left Epididymis: Size: 1.1 x 1.0 x 0.9 cm Masses: None Hydrocele: None Varicocele: None Scrotal wall: There is a complex cystic area in the scrotum between the testicles measuring up to 1.9 cm in size. Additi onally the scrotal wall appears heterogenous. IMPRESSION: PAGE 1 Signed Report (CONTINUED) Name: KIMBERLY FREEDMAN [facility] : 1990 Age/S: 29 / M [address] [facility] Unit #: [id number] Loc: [place] [address] Phys: Tahira Bowman NP Acct: [id number] Di s Date: Status: PRE ER PHONE #: Exam Date: 08/16/2019 1431 FAX #: Reason: LOW ABD PAIN WITH TESTICLE SWELLING/PAINTEST PA EXAMS: CPT CODE: [id number] US SCROTUM AND CNTS 89434 <Continued> The testicles are sonographically unremarkable. Complex cystic area in the scrotum between the testicles with no internal flow. This may represent a developing abscess. Location: [facility] at 1449 Reported and signed by: Noé Mcgrath MD CC: Shabbir Bowman NP Technologist: TANIYA SPENCE RDPA Trnscb Date/Time: 08/16/2019 (1449 ) [id number].[email or web address] Orig Print D/T: S: 08/16/2019 (4474) Prob e: PAGE 2 Signed Report BASIC METABOLIC [id number] 20:06:00* Test Item Value Reference Range Interpretation Comments SODIUM (test code = NA) 141 mmol/L 136-145 N POTASSIUM (test code = K) 4.0 mmol/L 3.5-5.1 N CHLORIDE (test code = CL) 109.0 mmol/L 98-107 H CARBON DIOXIDE (test code = CO2) 27.0 mmol/L 21-32 N ANION GAP (test code = GAP) 9.0 10-20 L GLUCOSE (test code = GLU) 76 mg/dL 74-106 N BLOOD UREA NITROGEN (test code = BUN) 8 mg/dL 7-18 N GLOMERULAR FILTRATION RATE (test code = GFR) > 60 mL/min >=60 Estimated GFR by using Modified MDRD formula.Chronic kidney disease is defined as either kidney damageor GFR <60 mL/min/1.73 m2 for >3 months. CREATININE (test code = CREAT) 0.80 mg/dL 0.7-1.3 N BUN/CREATININE RATIO (test code = BUN/CREA) 10.0 10-20 N CALCIUM (test code = CA) 9.1 mg/dL 8.5-10.1 N BASIC METABOLIC [id number] 20:04:00* Test Item Value Reference Range Interpretation Comments SODIUM (test code = NA) 141 mmol/L 136-145 N POTASSIUM (test code = K) 4.0 mmol/L 3.5-5.1 N CHLORIDE (test code = CL) 109.0 mmol/L 98-107 H CARBON DIOXIDE (test code = CO2) mmol/L 21-32 ANION GAP (test code = GAP) 10-20 GLUCOSE (test code = GLU) mg/dL 74-106 BLOOD UREA NITROGEN (test code = BUN) mg/dL 7-18 GLOMERULAR FILTRATION RATE (test code = GFR) mL/min >=60 CREATININE (test code = CREAT) mg/dL 0.7-1.3 BUN/CREATININE RATIO (test code = BUN/CREA) 10-20 CALCIUM (test code = CA) 9.1 mg/dL 8.5-10.1 N CBC W/AUTO [id number] 19:55:00* Test Item Value Reference Range Interpretation Comments WHITE BLOOD CELL (test code = WBC) 6.9 K/mm3 4.5-12.5 N RED BLOOD CELL (test code = RBC) 4.47 mill/mm3 4.0-5.8 N HEMOGLOBIN (test code = HGB) 15.0 gram/dL 13.0-17.5 N HEMATOCRIT (test code = HCT) 44.2 % 42.0-52.0 N MEAN CELL VOLUME (test code = MCV) 98.9 fL 80-98 H MEAN CELL HGB (test code = MCH) 33.6 picogram 27.0-33.0 H MEAN CELL HGB CONCETRATION (test code = MCHC) 33.9 gram/dL 33.0-36. 0 N RED CELL DISTRIBUTION WIDTH (test code = RDW) 12.3 % 11.6-16. 2 N RED CELL DISTRIBUTION WIDTH SD (test code = RDW-SD) 44.8 fL 37 .0-51.0 N PLATELET COUNT (test code = PLT) 265 K/mm3 150-450 N MEAN PLATELET VOLUME (test code = MPV) 9.9 fL 6.7-11.0 N NEUTROPHIL % (test code = NT%) 79.1 % 39.0-69.0 H IMMATURE GRANULOCYTE % (test code = IG%) 0.3 % 0.0-5.0 N LYMPHOCYTE % (test code = LY%) 10.4 % 25.0-55.0 L MONOCYTE % (test code = MO%) 8.3 % 0.0-10.0 N EOSINOPHIL % (test code = EO%) 1.0 % 0.0-5.0 N BASOPHIL % (test code = BA%) 0.9 % 0.0-1.0 N NUCLEATED RBC % (test code = NRBC%) 0.0 % 0-0 N NEUTROPHIL # (test code = NT#) 5.46 K/mm3 1.8-7.7 N IMMATURE GRANULOCYTE # (test code = IG#) 0.02 x10 3/uL 0-0.03 N LYMPHOCYTE # (test code = LY#) 0.72 K/mm3 1.0-5.0 L MONOCYTE # (test code = MO#) 0.57 K/mm3 0-0.8 N EOSINOPHIL # (test code = EO#) 0.07 K/mm3 0.0-0.5 N BASOPHIL # (test code = BA#) 0.06 K/mm3 0.0-0.2 N NUCLEATED RBC # (test code = NRBC#) 0.00 K/mm3 0.0-0.1 N CBC W/AUTO [id number] 19:54:00* Test Item Value Reference Range Interpretation Comments WHITE BLOOD CELL (test code = WBC) K/mm3 4.5-12.5 RED BLOOD CELL (test code = RBC) mill/mm3 4.0-5.8 HEMOGLOBIN (test code = HGB) 15.0 gram/dL 13.0-17.5 N HEMATOCRIT (test code = HCT) 44.2 % 42.0-52.0 N MEAN CELL VOLUME (test code = MCV) fL 80-98 MEAN CELL HGB (test code = MCH) picogram 27.0-33.0 MEAN CELL HGB CONCETRATION (test code = MCHC) gram/dL 33.0-36. 0 RED CELL DISTRIBUTION WIDTH (test code = RDW) % 11.6-16. 2 RED CELL DISTRIBUTION WIDTH SD (test code = RDW-SD) fL 37 .0-51.0 PLATELET COUNT (test code = PLT) K/mm3 150-450 MEAN PLATELET VOLUME (test code = MPV) fL 6.7-11.0 NEUTROPHIL % (test code = NT%) % 39.0-69.0 IMMATURE GRANULOCYTE % (test code = IG%) % 0.0-5.0 LYMPHOCYTE % (test code = LY%) % 25.0-55.0 MONOCYTE % (test code = MO%) % 0.0-10.0 EOSINOPHIL % (test code = EO%) % 0.0-5.0 BASOPHIL % (test code = BA%) % 0.0-1.0 NEUTROPHIL # (test code = NT#) K/mm3 1.8-7.7 LYMPHOCYTE # (test code = LY#) K/mm3 1.0-5.0 MONOCYTE # (test code = MO#) K/mm3 0-0.8 EOSINOPHIL # (test code = EO#) K/mm3 0.0-0.5 BASOPHIL # (test code = BA#) K/mm3 0.0-0.2 [id number] 22:18:00* Test Item Value Reference Range Interpretation Comments GLUBED (test code = GLUBED) 130 mg/dL 74-106 H Performed by certified second operator at [facility] [place] [id number] 21:49:00* Test Item Value Reference Range Interpretation Comments GLUBED (test code = GLUBED) 69 mg/dL 74-106 L Performed by certified second operator at [facility] [place] BASIC METABOLIC [id number] 19:53:00* Test Item Value Reference Range Interpretation Comments SODIUM (test code = NA) 140 mmol/L 136-145 N POTASSIUM (test code = K) 4.0 mmol/L 3.5-5.1 N CHLORIDE (test code = CL) 108.0 mmol/L 98-107 H CARBON DIOXIDE (test code = CO2) 27.0 mmol/L 21-32 N ANION GAP (test code = GAP) 9.0 10-20 L GLUCOSE (test code = GLU) 80 mg/dL 74-106 N BLOOD UREA NITROGEN (test code = BUN) 7 mg/dL 7-18 N GLOMERULAR FILTRATION RATE (test code = GFR) > 60 mL/min >=60 Estimated GFR by using Modified MDRD formula.Chronic kidney disease is defined as either kidney damageor GFR <60 mL/min/1.73 m2 for >3 months. CREATININE (test code = CREAT) 0.70 mg/dL 0.7-1.3 N BUN/CREATININE RATIO (test code = BUN/CREA) 10.0 10-20 N CALCIUM (test code = CA) 8.7 mg/dL 8.5-10.1 N BASIC METABOLIC [id number] 19:50:00* Test Item Value Reference Range Interpretation Comments SODIUM (test code = NA) 140 mmol/L 136-145 N POTASSIUM (test code = K) 4.0 mmol/L 3.5-5.1 N CHLORIDE (test code = CL) 108.0 mmol/L 98-107 H CARBON DIOXIDE (test code = CO2) mmol/L 21-32 ANION GAP (test code = GAP) 10-20 GLUCOSE (test code = GLU) mg/dL 74-106 BLOOD UREA NITROGEN (test code = BUN) mg/dL 7-18 GLOMERULAR FILTRATION RATE (test code = GFR) mL/min >=60 CREATININE (test code = CREAT) mg/dL 0.7-1.3 BUN/CREATININE RATIO (test code = BUN/CREA) 10-20 CALCIUM (test code = CA) 8.7 mg/dL 8.5-10.1 N CBC W/O [id number] 19:44:00* Test Item Value Reference Range Interpretation Comments WHITE BLOOD CELL (test code = WBC) 5.6 K/mm3 4.5-12.5 N RED BLOOD CELL (test code = RBC) 4.32 mill/mm3 4.0-5.8 N HEMOGLOBIN (test code = HGB) 14.8 gram/dL 13.0-17.5 N HEMATOCRIT (test code = HCT) 43.0 % 42.0-52.0 N MEAN CELL VOLUME (test code = MCV) 99.5 fL 80-98 H MEAN CELL HGB (test code = MCH) 34.3 picogram 27.0-33.0 H MEAN CELL HGB CONCETRATION (test code = MCHC) 34.4 gram/dL 33.0-36. 0 N RED CELL DISTRIBUTION WIDTH (test code = RDW) 12.0 % 11.6-16. 2 N PLATELET COUNT (test code = PLT) 242 K/mm3 150-450 N MEAN PLATELET VOLUME (test code = MPV) 9.8 fL 6.7-11.0 N CBC W/O [id number] 19:39:00* Test Item Value Reference Range Interpretation Comments WHITE BLOOD CELL (test code = WBC) K/mm3 4.5-12.5 RED BLOOD CELL (test code = RBC) mill/mm3 4.0-5.8 HEMOGLOBIN (test code = HGB) 14.8 gram/dL 13.0-17.5 N HEMATOCRIT (test code = HCT) 43.0 % 42.0-52.0 N MEAN CELL VOLUME (test code = MCV) fL 80-98 MEAN CELL HGB (test code = MCH) picogram 27.0-33.0 MEAN CELL HGB CONCETRATION (test code = MCHC) gram/dL 33.0-36. 0 RED CELL DISTRIBUTION WIDTH (test code = RDW) % 11.6-16. 2 PLATELET COUNT (test code = PLT) K/mm3 150-450 MEAN PLATELET VOLUME (test code = MPV) fL 6.7-11.0 [id number] 18:47:00* Test Item Value Reference Range Interpretation Comments GLUBED (test code = GLUBED) 72 mg/dL 74-106 L Performed by certified second operator at [facility] [place] [id number] 22:20:00* Test Item Value Reference Range Interpretation Comments CALCIUM (test code = CA) 9.1 mg/dL 8.5-10.1 N [id number] 22:20:00* Test Item Value Reference Range Interpretation Comments PHOSPHORUS (test code = PHOS) 1.7 mg/dL 2.5-4.9 L THYROID STIMULATING [id number] 22:20:00* Test Item Value Reference Range Interpretation Comments THYROID STIMULATING HORMONE (test code = TSH) 1.880 uIU/mL 0.36-3.7 4 N TSH REFERENCE RANGES: EUTHYROID: 0.35 - 4.3 mIU/mL HYPO : > 5.5 mIU/mL HYPER : < 0.35 mIU/mL [id number] 22:15:00* Test Item Value Reference Range Interpretation Comments CALCIUM (test code = CA) 9.1 mg/dL 8.5-10.1 N [id number] 22:15:00* Test Item Value Reference Range Interpretation Comments PHOSPHORUS (test code = PHOS) mg/dL 2.5-4.9 THYROID STIMULATING [id number] 22:15:00* Test Item Value Reference Range Interpretation Comments THYROID STIMULATING HORMONE (test code = TSH) uIU/mL 0.36-3.7 4 DRUGS OF ABUSE SCREEN [id number] 21:15:00* Test Item Value Reference Range Interpretation Comments UA PH DIPSTICK (test code = SHANNA) 5.5 5.0-8.0 URN COCAINE (test code = COCAURN) NEGATIVE <300 ng/mL URN CANNABINOIDS (test code = CANNABURN) POSITIVE <50 ng/mL A This test provides only a preliminary test result. A morespecific alternate chemical method must be used in order toobtain a confirmed analytical result. Gas chromatography/mass spectrometry (GC/MS) is thepreferred confirmatory method. Other chemical confirmationmethods are available. Clinical consideration and professional judgment should be applied to any drug of abusetest result, particularly when preliminary positive resultsare used.Unconfirmed screening results must not be used fornon-medical purposes (e.g., employment testing, legaltesting). URN AMPHETAMINE (test code = AMPHETURN) NEGATIVE <1000 ng/mL URN BARBITURATE (test code = BARBITURN) NEGATIVE <200 ng/mL URN BENZODIAZEPINE (test code = BENZOURN) NEGATIVE <200 ng/mL URN OPIATES (test code = OPIATURN) NEGATIVE <300 ng/mL URN PHENCYCLIDINE (PCP) (test code = PHENCURN) NEGATIVE <25 ng/ mL URN METHADONE (test code = METHAURN) NEGATIVE <300 ng/mL [id number] 20:53:00* Test Item Value Reference Range Interpretation Comments ALCOHOL (test code = ALC) < 3 mg/dL 0.0-3.0 N -- INTERPRETIVE DATA NOTE: POSITIVE SCREENING RESULTS SHOULD BE CONSIDERED PRESUMPTIVE.WHEN COLLECTED FOR MEDICAL PURPOSES ONLY. SPECIMEN WILL NOTBE COLLECTED BY CHAIN OF CUSTODY.IF A CONFIRMATION OF POSITIVE RESULTS IS DESIRED, ACONFIRMATION TEST MUST BE REQUESTED BY THE PHYSICIAN AT ANADDITIONAL CHARGE TO THE PATIENT. DRUGS OF ABUSE SCREEN [id number] 20:50:00* Test Item Value Reference Range Interpretation Comments UA PH DIPSTICK (test code = SHANNA) 5.5 5.0-8.0 URN COCAINE (test code = COCAURN) <300 ng/mL URN CANNABINOIDS (test code = CANNABURN) <50 ng/mL URN AMPHETAMINE (test code = AMPHETURN) <1000 ng/mL URN BARBITURATE (test code = BARBITURN) <200 ng/mL URN BENZODIAZEPINE (test code = BENZOURN) <200 ng/mL URN OPIATES (test code = OPIATURN) <300 ng/mL URN PHENCYCLIDINE (PCP) (test code = PHENCURN) <25 ng/ mL URN METHADONE (test code = METHAURN) <300 ng/mL - CT HEAD/BRAIN W/O [id number] 20:38:00 Name: KIMBERLY FREEDMAN [facility] : 1990 Age/S: 28 / M [address] [facility] Unit #: [id number] Loc: [place] [address] Phys: Jair Rodríguez MD Acct: [id number] Dis Date: Status: REG ER PHONE #: [phone] Exam Date: 03/02/20192014 FAX #: [phone] Reason: Seizure EXAMS: CPT CODE: [id number] CT HEAD/BRAIN W/O CONT 25403 HISTORY: Seizure TECHNIQUE: Noncontrast 2.[address] of the head. Examination acquired within 24 hours of arrival. Automated exposure control for dose reduction; DLP: 1702 mGy-cm. COMPARISON: 11/28/18 FINDINGS: No acute hemorrhage. No CT evidence of acute infarct. No intracranial mass or mass effect. No hydrocephalus. No extra-axial fluid collection. Trace left maxillary sinus mucosal thickening. Mastoid air cells and middle ear cavities are clear. Orbital contents are unremarkable. Calvarium and skull base are intact. IMPRESSION: No acute intracranial process. LOCATION: LP at 2037 Reported and signed by: Norma Rueda D.O. CC: Jair Rodríguez MD Technologist:Mark Soto, RT(R)(CT) CTDI: DLP: Trnscb Date/Time: 03/02/2019 (2037) [email or web address] Orig Print D/T: S: 03/02/2019 (2040) PAGE 1 Signed Report BASIC METABOLIC [id number] 19:41:00* Test Item Value Reference Range Interpretation Comments SODIUM (test code = NA) 142 mmol/L 136-145 N POTASSIUM (test code = K) 4.3 mmol/L 3.5-5.1 N CHLORIDE (test code = CL) 109.0 mmol/L 98-107 H CARBON DIOXIDE (test code = CO2) 22.0 mmol/L 21-32 N ANION GAP (test code = GAP) 15.3 10-20 N GLUCOSE (test code = GLU) 81 mg/dL 74-106 N BLOOD UREA NITROGEN (test code = BUN) 8 mg/dL 7-18 N GLOMERULAR FILTRATION RATE (test code = GFR) > 60 mL/min >=60 Estimated GFR by using Modified MDRD formula.Chronic kidney disease is defined as either kidney damageor GFR <60 mL/min/1.73 m2 for >3 months. CREATININE (test code = CREAT) 1.00 mg/dL 0.7-1.3 N BUN/CREATININE RATIO (test code = BUN/CREA) 8.0 10-20 L CALCIUM (test code = CA) 9.1 mg/dL 8.5-10.1 N BASIC METABOLIC [id number] 19:40:00* Test Item Value Reference Range Interpretation Comments SODIUM (test code = NA) 142 mmol/L 136-145 N POTASSIUM (test code = K) 4.3 mmol/L 3.5-5.1 N CHLORIDE (test code = CL) 109.0 mmol/L 98-107 H CARBON DIOXIDE (test code = CO2) mmol/L 21-32 ANION GAP (test code = GAP) 10-20 GLUCOSE (test code = GLU) mg/dL 74-106 BLOOD UREA NITROGEN (test code = BUN) mg/dL 7-18 GLOMERULAR FILTRATION RATE (test code = GFR) mL/min >=60 CREATININE (test code = CREAT) mg/dL 0.7-1.3 BUN/CREATININE RATIO (test code = BUN/CREA) 10-20 CALCIUM (test code = CA) mg/dL 8.5-10.1 CBC W/O [id number] 19:37:00* Test Item Value Reference Range Interpretation Comments WHITE BLOOD CELL (test code = WBC) 6.3 K/mm3 4.5-12.5 N RED BLOOD CELL (test code = RBC) 4.08 mill/mm3 4.0-5.8 N HEMOGLOBIN (test code = HGB) 13.7 gram/dL 13.0-17.5 N HEMATOCRIT (test code = HCT) 40.9 % 42.0-52.0 L MEAN CELL VOLUME (test code = MCV) 100.2 fL 80-98 H MEAN CELL HGB (test code = MCH) 33.6 picogram 27.0-33.0 H MEAN CELL HGB CONCETRATION (test code = MCHC) 33.5 gram/dL 33.0-36. 0 N RED CELL DISTRIBUTION WIDTH (test code = RDW) 12.1 % 11.6-16. 2 N PLATELET COUNT (test code = PLT) 223 K/mm3 150-450 N MEAN PLATELET VOLUME (test code = MPV) 9.8 fL 6.7-11.0 N - CT HEAD/BRAIN W/O [id number] 22:33:00 Name: KIMBERLY FREEDMAN [facility] : 1990 Age/S: 28 / M [address] Unit #: [id number] Loc: [place], [place] [address] Phys: Jair Rodríguez MD Acct: [id number] Dis Date: Status: REG ER PHONE #: [phone] Exam Date: 11/28/20182212 FAX #: [phone] Reason: multiple seizure EXAMS: CPT CODE: [id number] CT HEAD/BRAIN W/O CONT 68636 REASON FOR EXAM: multiple seizure EXAM ORDER DATE: 11/28/2018 9:20 PM Ordering Nicko: Jair Rodríguez MD PROCEDURE: - CT HEAD/BRAIN W/O CONT COMPARISON: 08/27/2018 FINDINGS: CT images of the brain were obtained without IV contrast. Dose modulation, iterative reconstruction, and/or weight based adjustment of the MA/KV was utilized to reduce the radiation dose to as low as reasonably achievable. The brain parenchyma is within normal limits. The bucio-white matter delineation is unremarkable. The ventricles, cisterns, and sulci are unremarkable. There is no evidence of hemorrhage, mass, mass effect. There is no evidence of acute or old infarct. The calvarium is intact. IMPRESSION: Unremarkable brain. at 2233 Reported and signed by: Los Marti M.D. CC: Jair Rodríguez MD Technologist:Mary PAYNE(R); SUPA Ordaz CTDI: DLP: Trnscb Date/Time: 11/28/2018 (2232) t.[email or web address].VTL Orig Print D/T: S: 11/28/2018 (3838) PAGE 1 Signed Report BASIC METABOLIC [id number] 22:01:00* Test Item Value Reference Range Interpretation Comments SODIUM (test code = NA) 148 mmol/L 136-145 H POTASSIUM (test code = K) 4.0 mmol/L 3.5-5.1 N CHLORIDE (test code = CL) 114.0 mmol/L 98-107 H CARBON DIOXIDE (test code = CO2) 18.0 mmol/L 21-32 L ANION GAP (test code = GAP) 20.0 10-20 N GLUCOSE (test code = GLU) 102 mg/dL 74-106 N BLOOD UREA NITROGEN (test code = BUN) 7 mg/dL 7-18 N GLOMERULAR FILTRATION RATE (test code = GFR) > 60 mL/min >=60 Estimated GFR by using Modified MDRD formula.Chronic kidney disease is defined as either kidney damageor GFR <60 mL/min/1.73 m2 for >3 months. CREATININE (test code = CREAT) 1.00 mg/dL 0.7-1.3 N BUN/CREATININE RATIO (test code = BUN/CREA) 7.0 10-20 L CALCIUM (test code = CA) 9.4 mg/dL 8.5-10.1 N CBC W/O [id number] 21:56:00* Test Item Value Reference Range Interpretation Comments WHITE BLOOD CELL (test code = WBC) 8.6 K/mm3 4.5-12.5 N RED BLOOD CELL (test code = RBC) 4.38 mill/mm3 4.0-5.8 N HEMOGLOBIN (test code = HGB) 15.0 gram/dL 13.0-17.5 N HEMATOCRIT (test code = HCT) 43.6 % 42.0-52.0 N MEAN CELL VOLUME (test code = MCV) 99.5 fL 80-98 H MEAN CELL HGB (test code = MCH) 34.2 picogram 27.0-33.0 H MEAN CELL HGB CONCETRATION (test code = MCHC) 34.4 gram/dL 33.0-36. 0 N RED CELL DISTRIBUTION WIDTH (test code = RDW) 12.1 % 11.6-16. 2 N PLATELET COUNT (test code = PLT) 231 K/mm3 150-450 N MEAN PLATELET VOLUME (test code = MPV) 10.3 fL 6.7-11.0 N BASIC METABOLIC [id number] 21:53:00* Test Item Value Reference Range Interpretation Comments SODIUM (test code = NA) 148 mmol/L 136-145 H POTASSIUM (test code = K) 4.0 mmol/L 3.5-5.1 N CHLORIDE (test code = CL) 114.0 mmol/L 98-107 H CARBON DIOXIDE (test code = CO2) mmol/L 21-32 ANION GAP (test code = GAP) 10-20 GLUCOSE (test code = GLU) mg/dL 74-106 BLOOD UREA NITROGEN (test code = BUN) mg/dL 7-18 GLOMERULAR FILTRATION RATE (test code = GFR) mL/min >=60 CREATININE (test code = CREAT) mg/dL 0.7-1.3 BUN/CREATININE RATIO (test code = BUN/CREA) 10-20 CALCIUM (test code = CA) mg/dL 8.5-10.1 CBC W/O [id number] 21:48:00* Test Item Value Reference Range Interpretation Comments WHITE BLOOD CELL (test code = WBC) K/mm3 4.5-12.5 RED BLOOD CELL (test code = RBC) mill/mm3 4.0-5.8 HEMOGLOBIN (test code = HGB) 15.0 gram/dL 13.0-17.5 N HEMATOCRIT (test code = HCT) 43.6 % 42.0-52.0 N MEAN CELL VOLUME (test code = MCV) fL 80-98 MEAN CELL HGB (test code = MCH) picogram 27.0-33.0 MEAN CELL HGB CONCETRATION (test code = MCHC) gram/dL 33.0-36. 0 RED CELL DISTRIBUTION WIDTH (test code = RDW) % 11.6-16. 2 PLATELET COUNT (test code = PLT) K/mm3 150-450 MEAN PLATELET VOLUME (test code = MPV) fL 6.7-11.0 BASIC METABOLIC [id number] 02:26:00* Test Item Value Reference Range Interpretation Comments SODIUM (test code = NA) 136 mmol/L 136-145 N POTASSIUM (test code = K) 3.4 mmol/L 3.5-5.1 L CHLORIDE (test code = CL) 103.0 mmol/L 98-107 N CARBON DIOXIDE (test code = CO2) 19.0 mmol/L 21-32 L ANION GAP (test code = GAP) 17.4 10-20 N GLUCOSE (test code = GLU) 212 mg/dL 74-106 H BLOOD UREA NITROGEN (test code = BUN) 12 mg/dL 7-18 N GLOMERULAR FILTRATION RATE (test code = GFR) > 60 mL/min >=60 Estimated GFR by using Modified MDRD formula.Chronic kidney disease is defined as either kidney damageor GFR <60 mL/min/1.73 m2 for >3 months. CREATININE (test code = CREAT) 1.10 mg/dL 0.7-1.3 N BUN/CREATININE RATIO (test code = BUN/CREA) 10.9 10-20 N CALCIUM (test code = CA) 9.0 mg/dL 8.5-10.1 N HEPATIC FUNCTION [id number] 02:26:00* Test Item Value Reference Range Interpretation Comments TOTAL PROTEIN (test code = PROT) 8.1 gram/dL 6.4-8.2 N ALBUMIN (test code = ALB) 4.3 g/dL 3.4-5.0 N GLOBULIN (test code = GLOB) 3.8 gram/dL 2.7-4.2 N ALBUMIN/GLOBULIN RATIO (test code = A/G) 1.1 0.75-1.50 N BILIRUBIN TOTAL (test code = BILT) 0.80 mg/dL 0.0-1.0 N BILIRUBIN DIRECT (test code = BILD) 0.19 mg/dL 0.0-0.20 N SGOT/AST (test code = AST) 31 IUnit/L 15-37 N SGPT/ALT (test code = ALT) 28 IUnit/L 12-78 N ALKALINE PHOSPHATASE TOTAL (test code = ALKP) 76 IUnit/L 45-117 N Note change in reference range due to change in reagent. BASIC METABOLIC [id number] 02:20:00* Test Item Value Reference Range Interpretation Comments SODIUM (test code = NA) 136 mmol/L 136-145 N POTASSIUM (test code = K) 3.4 mmol/L 3.5-5.1 L CHLORIDE (test code = CL) 103.0 mmol/L 98-107 N CARBON DIOXIDE (test code = CO2) mmol/L 21-32 ANION GAP (test code = GAP) 10-20 GLUCOSE (test code = GLU) mg/dL 74-106 BLOOD UREA NITROGEN (test code = BUN) mg/dL 7-18 GLOMERULAR FILTRATION RATE (test code = GFR) mL/min >=60 CREATININE (test code = CREAT) mg/dL 0.7-1.3 BUN/CREATININE RATIO (test code = BUN/CREA) 10-20 CALCIUM (test code = CA) mg/dL 8.5-10.1 HEPATIC FUNCTION [id number] 02:20:00* Test Item Value Reference Range Interpretation Comments TOTAL PROTEIN (test code = PROT) gram/dL 6.4-8.2 ALBUMIN (test code = ALB) g/dL 3.4-5.0 GLOBULIN (test code = GLOB) gram/dL 2.7-4.2 ALBUMIN/GLOBULIN RATIO (test code = A/G) 0.75-1.50 BILIRUBIN TOTAL (test code = BILT) mg/dL 0.0-1.0 BILIRUBIN DIRECT (test code = BILD) mg/dL 0.0-0.20 SGOT/AST (test code = AST) IUnit/L 15-37 SGPT/ALT (test code = ALT) IUnit/L 12-78 ALKALINE PHOSPHATASE TOTAL (test code = ALKP) IUnit/L 45-117 CBC W/AUTO [id number] 02:04:00* Test Item Value Reference Range Interpretation Comments WHITE BLOOD CELL (test code = WBC) K/mm3 4.5-12.5 RED BLOOD CELL (test code = RBC) mill/mm3 4.0-5.8 HEMOGLOBIN (test code = HGB) 14.8 gram/dL 13.0-17.5 N HEMATOCRIT (test code = HCT) 43.4 % 42.0-52.0 N MEAN CELL VOLUME (test code = MCV) fL 80-98 MEAN CELL HGB (test code = MCH) picogram 27.0-33.0 MEAN CELL HGB CONCETRATION (test code = MCHC) gram/dL 33.0-36. 0 RED CELL DISTRIBUTION WIDTH (test code = RDW) % 11.6-16. 2 RED CELL DISTRIBUTION WIDTH SD (test code = RDW-SD) fL 37 .0-51.0 PLATELET COUNT (test code = PLT) K/mm3 150-450 MEAN PLATELET VOLUME (test code = MPV) fL 6.7-11.0 NEUTROPHIL % (test code = NT%) % 39.0-69.0 IMMATURE GRANULOCYTE % (test code = IG%) % 0.0-5.0 LYMPHOCYTE % (test code = LY%) % 25.0-55.0 MONOCYTE % (test code = MO%) % 0.0-10.0 EOSINOPHIL % (test code = EO%) % 0.0-5.0 BASOPHIL % (test code = BA%) % 0.0-1.0 NEUTROPHIL # (test code = NT#) K/mm3 1.8-7.7 LYMPHOCYTE # (test code = LY#) K/mm3 1.0-5.0 MONOCYTE # (test code = MO#) K/mm3 0-0.8 EOSINOPHIL # (test code = EO#) K/mm3 0.0-0.5 BASOPHIL # (test code = BA#) K/mm3 0.0-0.2 CBC W/AUTO [id number] 02:04:00* Test Item Value Reference Range Interpretation Comments WHITE BLOOD CELL (test code = WBC) 17.8 K/mm3 4.5-12.5 H RED BLOOD CELL (test code = RBC) 4.32 mill/mm3 4.0-5.8 N HEMOGLOBIN (test code = HGB) 14.8 gram/dL 13.0-17.5 N HEMATOCRIT (test code = HCT) 43.4 % 42.0-52.0 N MEAN CELL VOLUME (test code = MCV) 100.5 fL 80-98 H MEAN CELL HGB (test code = MCH) 34.3 picogram 27.0-33.0 H MEAN CELL HGB CONCETRATION (test code = MCHC) 34.1 gram/dL 33.0-36. 0 N RED CELL DISTRIBUTION WIDTH (test code = RDW) 12.0 % 11.6-16. 2 N RED CELL DISTRIBUTION WIDTH SD (test code = RDW-SD) 45.1 fL 37 .0-51.0 N PLATELET COUNT (test code = PLT) 223 K/mm3 150-450 N MEAN PLATELET VOLUME (test code = MPV) 10.1 fL 6.7-11.0 N NEUTROPHIL % (test code = NT%) 89.4 % 39.0-69.0 H IMMATURE GRANULOCYTE % (test code = IG%) 0.8 % 0.0-5.0 N LYMPHOCYTE % (test code = LY%) 2.4 % 25.0-55.0 L MONOCYTE % (test code = MO%) 7.1 % 0.0-10.0 N EOSINOPHIL % (test code = EO%) 0.0 % 0.0-5.0 N BASOPHIL % (test code = BA%) 0.3 % 0.0-1.0 N NUCLEATED RBC % (test code = NRBC%) 0.0 % 0-0 N NEUTROPHIL # (test code = NT#) 15.88 K/mm3 1.8-7.7 H IMMATURE GRANULOCYTE # (test code = IG#) 0.15 x10 3/uL 0-0.03 H LYMPHOCYTE # (test code = LY#) 0.42 K/mm3 1.0-5.0 L MONOCYTE # (test code = MO#) 1.27 K/mm3 0-0.8 H EOSINOPHIL # (test code = EO#) 0.00 K/mm3 0.0-0.5 N BASOPHIL # (test code = BA#) 0.06 K/mm3 0.0-0.2 N NUCLEATED RBC # (test code = NRBC#) 0.00 K/mm3 0.0-0.1 N - CT HEAD/BRAIN W/O [id number] 01:45:00 Name: KIMBERLY FREEDMAN [facility] : 1990 Age/S: 28 / M [address] Unit #: [id number] Loc: [place] [address] Phys: Finn Porter DO Acct: [id number] Dis Date: Status: REG ER PHONE #: [phone] Exam Date: 08/27/2018 014 FAX #: [phone] Reason: Altered Mental Status EXAMS: CPT CODE: [id number] CT HEAD/BRAIN W/O CONT [id number] EXAM: - CT HEAD/BRAIN W/O CONT Location code:C3 HISTORY: 28 years -old Male with Altered Mental Status TECHNIQUE: Axial CT images from the skull base to the vertex without intravenous contrast. Coronal and sagittal reformatted images were created from the data set. One or more of the following dose reduction techniques were used: Automated exposure control, adjustment of the mA and/or kV according to patient size, and/or utilization of iterative reconstruction technique. REMA RISON: 09/19/2016 FINDINGS: Intracranial: No abnormal b rain parenchymal density. No evidence of acute infarction, intracranial h emorrhage, mass or mass effect, or abnormal extra-axial fluid collection. The ventricular system and sulci are age appropriate. The density in the larger dural sinuses is grossly normal. B ones: There is no evidence of acute displaced calvarial fracture. Sinuses: The visualized portions of the paranasal sinuses demonstrate no s ignificant opacification.The mastoid air cells are clear. Orbits/S oft Tissues: The visualized orbits show no significant abnormalities. Th e visualized soft tissues are unremarkable. IMPRESSION: 1. No intracranial hemorrhage. No acute intracranial abnormality. at 0145 Reported and signed by: Supa Osorio MD PAGE 1 Signed Report (CONTINUED) Name: KIMBERLY FREEDMAN [facility] : 1990 Age/S: 28 / M [address] Unit #: [id number] Loc: [place] [address] Phys: Finn Porter DO Acct: [id number] Dis Date: Status: REG ER PHONE #: [phone] Exam Date: 08/27/2018 0142 FAX #: [phone] Reason: Al tered Mental Status EXAMS: CPT CODE: [id number] CT HEAD/BRAIN W/O CONT 54535 <Continued> CC: Finn Porter DO Technologist:MICKIE LAGOS CTDI: DLP: Trnscb Date/Time: 08/27/2018 (0145) [email or web address] Orig Print D/T: S: 08/27/2018 (0148) PAGE [address] CERVICAL SPINE [id number] 22:39:00 [place] [address] Patient Name: KIMBERLY FREEDMAN V MR #: [id number] : 1990 Age/Sex: 28/M Req #: [id number] Adm Physician: Ordered by: MARIN DAWKINS MD Report #: [id number] Location: ER Room/Bed: Procedure: 0616-[address]/CT CERVICAL SPINE WO Exam Date: 08/26/18 Exam Time: 2209 REPORT STATUS: Signed CT CERVICAL SPINE WO HISTORY: Trauma COMPARISON: Concurrent head CT TECHNIQUE: CT of the cervical spine without contrast. Sagittal and coronal reformations were created. One or more of the following dose reduction te chniques were used: Automated exposure control, adjustment of the mA and/or kV according to patient size, and/or utilization of iterative reconstruction ruben hnique. FINDINGS: Cervical lordosis is slightly reversed. There is no scoliosis or subluxation. No fractures, compression deformity, or destr uctive osseous lesions are seen. The craniocervical junction is intact. N o gross spinal canal masses are seen. The paravertebral and paraspinal soft t issues are unremarkable. The disc spaces are preserved. Mild scarrin g and paraseptal emphysematous changes in the lung apices. IMPRESSION: No acute osseous abnormalities. Signed by: Dr. Sotero Ochoa M.D. on 08/26 10:42 PM Dictated By: SOTERO OCHOA MD 41 Transcribed By: FANI on 08/26/182241 COPY TO: MARIN DAWKINS MD CT BRAIN [id number] 22:36:00 [place] [address] Patient Name: KIMBERLY FREEDMAN V MR #: [id number] : [birth year] Age/Sex: 28/M Req #: [id number] Adm Physician: Ordered by: MARIN DAWKINS MD Report #: [id number] Location: ER Room/Bed: Procedure: 0616-[address]/CT BRAIN WO Exam Date: 08/26/18 Exam Time: 22 10 REPORT STATUS: Signed CT BRAI N WO HISTORY: Seizure, trauma COMPARISON: None. TECHNIQUE: No ncontrast axial scans were obtained from skull base to the vertex. Coronal an d sagittal reconstructions obtained from the axial data. One or more of the f ollowing dose reduction techniques were used: Automated exposure control, adju stment of the mA and/or kV according to patient size, and/or utilization of it erative reconstruction technique. DISCUSSION: Scalp/Skull: Unremarkabl e. Brain sulci: Appropriate for patient's age. Ventricles: Normal in size an d configuration. No hydrocephalus. Extra-axial spaces: No masses or fluid col lections. Parenchyma: No abnormal densities. No mass, hemorrhage, or large vascular territory acute infarct. Dural sinuses: No abnormal den sities. Sellar/Suprasellar region: Intact. Skull base: Intact. Incidental findings: None. IMPRESSION: No intracranial abnormalities. Signed by: Dr. Sotero Ochoa M.D. on 08/26/2018 10:39 PM Dictated By: MERCEDES OCHOA MD Transcribed By: FANI on 08/26/182238 COPY TO: MARIN DAWKINS MD Sodium [id number] 22:34:00* Test Item Value Reference Range Interpretation Comments Sodium Level (test code = 2951-2) 138 136-145 [facility] [id number] 22:34:00* Test Item Value Reference Range Interpretation Comments Potassium Level (test code = 2823-3) 3.8 3.5-5.1 [facility] CenterChloride [id number] 22:34:00* Test Item Value Reference Range Interpretation Comments Chloride Level (test code = 2075-0) 102 98-107 [facility] CenterCarbon Dioxide [id number] 22:34:00* Test Item Value Reference Range Interpretation Comments Carbon Dioxide Level (test code = 2028-9) 18 22-29 L [facility] CenterAnion [id number] 22:34:00* Test Item Value Reference Range Interpretation Comments Anion Gap (test code = 90794-8) 21.8 8-16 H [facility] CenterBlood Urea [id number] 22:34:00* Test Item Value Reference Range Interpretation Comments Blood Urea Nitrogen (test code = 3094-0) 13 7-26 [facility] CenterCreatinine2019-06-16 22:34:00* Test Item Value Reference Range Interpretation Comments Creatinine (test code = 2160-0) 0.87 0.72-1.25 [facility] CenterBUN/Creatinine [id number] 22:34:00* Test Item Value Reference Range Interpretation Comments BUN/Creatinine Ratio (test code = 3097-3) 15 6-25 [facility] Center[facility]at Glomerular Filtration Rate 2018-08-26 22:34:00* Test Item Value Reference Range Interpretation Comments Estimat Glomerular Filtration Rate (test code = 207689434) > 60 >60 Ranges were taken from the National Kidney Disease Education Program and the [facility] literature.Reference ranges:60 or greater: Nnqopg00-35 ( for 3 consecutive months): Chronic kidney disease 15 or less: Kidney failureTexas Vista Medical CenterGlucose Mfpjh7279-80-01 22:34:00* Test Item Value Reference Range Interpretation Comments Glucose Level (test code = DKC6112) 126 74-118 H [facility] CenterCalcium [id number] 22:34:00* Test Item Value Reference Range Interpretation Comments Calcium Level (test code = 52656-3) 9.7 8.4-10.2 [facility] CenterTotal [id number] 22:34:00* Test Item Value Reference Range Interpretation Comments Total Bilirubin (test code = 1975-2) 0.9 0.2-1.2 [facility] CenterAspartate Amino Transf (AST/SGOT) 2018-08-26 22:34:00* Test Item Value Reference Range Interpretation Comments Aspartate Amino Transf (AST/SGOT) (test code = Aspartate Amino Transf (AST/SGOT)) 31 5-34 [facility] CenterAlanine Aminotransferase (ALT/SGPT) 2018-08-26 22:34:00* Test Item Value Reference Range Interpretation Comments Alanine Aminotransferase (ALT/SGPT) (test code = 1742-6) 20 0-55 [facility] CenterTotal [id number] 22:34:00* Test Item Value Reference Range Interpretation Comments Total Protein (test code = 2885-2) 7.6 6.5-8.1 [facility] CenterAlbumin2019-06-16 22:34:00* Test Item Value Reference Range Interpretation Comments Albumin (test code = 1751-7) 4.3 3.5-5.0 [facility] CenterGlobulin2019-06-16 22:34:00* Test Item Value Reference Range Interpretation Comments Globulin (test code = 18383-6) 3.3 2.3-3.5 [facility] CenterAlbumin/Globulin [id number] 22:34:00 * Test Item Value Reference Range Interpretation Comments Albumin/Globulin Ratio (test code = 1759-0) 1.3 0.8-2.0 [facility] CenterAlkaline Zfuywibtbfv7016-14-50 22:34:00* Test Item Value Reference Range Interpretation Comments Alkaline Phosphatase (test code = 6768-6) 67 40-150 [facility] CenterUrine [id number] 22:29:00* Test Item Value Reference Range Interpretation Comments Urine WBC (test code = 5821-4) 0-5 0-5 [facility] Center[facility] [id number] 22:29:00* Test Item Value Reference Range Interpretation Comments Urine RBC (test code = 78643-0) 6-10 0-5 H [facility] CenterU[facility] Qptocpha8914-75-98 22:29:00* Test Item Value Reference Range Interpretation Comments Urine Bacteria (test code = 42705-6) RARE NONE [facility] Center[facility] Epithelial Bxhlz2319-12-58 22:29:00 * Test Item Value Reference Range Interpretation Comments Urine Epithelial Cells (test code = 09883-7) RARE NONE [facility] CenterU[facility] Waxy Bnrzm1331-00-44 22:29:00* Test Item Value Reference Range Interpretation Comments Urine Waxy Casts (test code = 66635-3) 1-5 >0 H [facility] CenterUrine [id number] 22:28:00* Test Item Value Reference Range Interpretation Comments Urine Color (test code = 5778-6) YELLOW YELLOW [facility] Center[facility] Evvlrem5815-41-14 22:28:00* Test Item Value Reference Range Interpretation Comments Urine Clarity (test code = 39176-1) CLEAR CLEAR [facility] CenterU[facility] Specific Jrfxcoa2363-86-33 22:28:00 * Test Item Value Reference Range Interpretation Comments Urine Specific [place] (test code = 5811-5) 1.025 1.010-1.02 5 [facility] CenterU[facility] [id number] 22:28:00* Test Item Value Reference Range Interpretation Comments Urine pH (test code = 71678-6) 6 5-7 [facility] Center[facility] Leukocyte Limcmkom4162-43-24 22:28:00* Test Item Value Reference Range Interpretation Comments Urine Leukocyte Esterase (test code = 16075-9) NEGATIVE NEGATIV E [facility] Center[facility] Opuefao0818-94-09 22:28:00* Test Item Value Reference Range Interpretation Comments Urine Nitrite (test code = 08426-6) NEGATIVE NEGATIVE [facility] Center[facility] Yvyjxcf5184-74-91 22:28:00* Test Item Value Reference Range Interpretation Comments Urine Protein (test code = 37012-7) 1+ NEGATIVE H [facility] Glucose (UA)2018-08-26 22:28:00* Test Item Value Reference Range Interpretation Comments Urine Glucose (UA) (test code = 71554-0) NEGATIVE NEGATIVE [facility] Center[facility] Iuxdxwg5304-27-77 22:28:00* Test Item Value Reference Range Interpretation Comments Urine Ketones (test code = 19853-7) NEGATIVE NEGATIVE [facility] Ixyltugxudaz7675-98-32 22:28:00* Test Item Value Reference Range Interpretation Comments Urine Urobilinogen (test code = 08727-5) 0.2 0.2-1 [facility] Center[facility] Fyznpvphr7504-89-38 22:28:00* Test Item Value Reference Range Interpretation Comments Urine Bilirubin (test code = 1977-8) NEGATIVE NEGATIVE [facility] CenterU[facility] Vgmoi9967-47-90 22:28:00* Test Item Value Reference Range Interpretation Comments Urine Blood (test code = 73357-6) 1+ NEGATIVE [facility] Opiates Olflqq9247-16-95 22:17:00* Test Item Value Reference Range Interpretation Comments Urine Opiates Screen (test code = 78155-7) NEGATIVE NEGATIVE ALL TESTS PERFORMED MANUALLY ON [employer] TOX/SEE TESTMem[facility] Barbiturates Vbpdss2493-16-67 22:17:00* Test Item Value Reference Range Interpretation Comments Urine Barbiturates Screen (test code = 328164745) NEGATIVE NEGA TIVE [facility] Center[facility] Phencyclidine Tbonct3637-28-27 22:17:00* Test Item Value Reference Range Interpretation Comments Urine Phencyclidine Screen (test code = 97911-2) NEGATIVE NEGAT NEETA [facility] Center[facility] Amphetamines Mlntmo4720-55-15 22:17:00* Test Item Value Reference Range Interpretation Comments Urine Amphetamines Screen (test code = 77234-8) NEGATIVE NEGATI VE [facility] Center[facility] Methamphetamines Pqobme8914-11-23 22:17:00* Test Item Value Reference Range Interpretation Comments Urine Methamphetamines Screen (test code = Urine Metha mphetamines Screen) NEGATIVE NEGATIVE [facility] Ben[facility]odiazep[facility] [id number] 22:17:00* Test Item Value Reference Range Interpretation Comments Urine Benzodiazepines Screen (test code = 85022-5) NEGATIVE NEG ATIVE [facility] Cocaine [id number] 22:17:00* Test Item Value Reference Range Interpretation Comments Urine Cocaine Screen (test code = 3398-5) NEGATIVE NEGATIVE [facility] Cann[facility] [id number] 22:17:00* Test Item Value Reference Range Interpretation Comments Urine Cannabinoids Screen (test code = 18872-8) POSITIVE NEGATI VE H THESE RESULTS ARE FOR MEDICAL TREATMENT ONLYTHIS REPORT CONTAINS UNCONFIR MED SCREENING RESULTS*POSITIVE RESULTS WILL BE CONFIRMED BY REFERENCE LAB UPON R EQUEST CUT-OFFDRUG CLASS CONCENTRATION ng/mLAmphetamines 1000Methamphetamines 1000Cocaine 300Opiate 300Phencyc lidine 25Cannabinoid 50Barbiturates 300Benzodiazepine 300Methadone 300 This test p rovides only a screen. Positive results should be repeated by a confirmatory bronson t.[facility]one [id number] 22:17:00* Test Item Value Reference Range Interpretation Comments Urine Methadone Screen (test code = 29849-0) NEGATIVE NEGATIVE THESE RESULTS ARE FOR MEDICAL TREATMENT ONLYTHIS REPORT CONTAINS UNCONFIR MED SCREENING RESULTS*POSITIVE RESULTS WILL BE CONFIRMED BY REFERENCE LAB UPON R EQUEST CUT-OFFDRUG CLASS CONCENTRATION ng/mLAmphetamines 1000Methamphetamines 1000Cocaine Metabolite 300Opiate 300Phencyc lidine 25Cannabinoid 50Barbiturates 300Benzodiazepine 300Methadone 300[facility] [id number] 22:15:00* Test Item Value Reference Range Interpretation Comments White Blood Count (test code = 6690-2) 7.02 4.8-10.8 [facility] [id number] 22:15:00* Test Item Value Reference Range Interpretation Comments Red Blood Count (test code = 789-8) 4.16 4.3-5.7 L [facility]Hemoglobin2019-06-16 22:15:00* Test Item Value Reference Range Interpretation Comments Hemoglobin (test code = 19321-9) 14.4 14.0-18.0 [facility]Hematocrit2019-06-16 22:15:00* Test Item Value Reference Range Interpretation Comments Hematocrit (test code = 4544-3) 41.4 38.2-49.6 [facility] CenterMean Corpuscular [id number] 22:15:00* Test Item Value Reference Range Interpretation Comments Mean Corpuscular Volume (test code = 787-2) 99.5 81-99 H [facility]Mean Corpuscular [id number] 22:15:00* Test Item Value Reference Range Interpretation Comments Mean Corpuscular Hemoglobin (test code = 785-6) 34.6 28-32 H [facility] CenterMean Corpuscular Hemoglobin Concent 2018-08-26 22:15:00* Test Item Value Reference Range Interpretation Comments Mean Corpuscular Hemoglobin Concent (test code = 786-4) 34.8 31-35 [facility] CenterRed Cell Distribution [id number] 22:15:00* Test Item Value Reference Range Interpretation Comments Red Cell Distribution Width (test code = 73784-3) 12.4 11.7 -14.4 [facility] CenterPlatelet [id number] 22:15:00* Test Item Value Reference Range Interpretation Comments Platelet Count (test code = 777-3) 216 140-360 [facility] CenterNeutrophils (%) (Auto)2018-08-26 22:15:00 * Test Item Value Reference Range Interpretation Comments Neutrophils (%) (Auto) (test code = 14374-8) 77.3 38.7-80.0 [facility] CenterLymphocytes (%) (Auto)2018-08-26 22:15:00 * Test Item Value Reference Range Interpretation Comments Lymphocytes (%) (Auto) (test code = 736-9) 8.8 18.0-39.1 L [facility] CenterMonocytes (%) (Auto)2018-08-26 22:15:00* Test Item Value Reference Range Interpretation Comments Monocytes (%) (Auto) (test code = 5905-5) 11.7 4.4-11.3 H [facility] CenterEosinophils (%) (Auto)2018-08-26 22:15:00 * Test Item Value Reference Range Interpretation Comments Eosinophils (%) (Auto) (test code = 713-8) 0.9 0.0-6.0 [facility] CenterBasophils (%) (Auto)2018-08-26 22:15:00* Test Item Value Reference Range Interpretation Comments Basophils (%) (Auto) (test code = 706-2) 0.7 0.0-1.0 [facility] CenterIM GRANULOCYTES %2018-08-26 22:15:00* Test Item Value Reference Range Interpretation Comments IM GRANULOCYTES % (test code = IM GRANULOCYTES %) 0.6 0.0- 1.0 [facility] CenterNeutrophils # (Auto)2018-08-26 22:15:00* Test Item Value Reference Range Interpretation Comments Neutrophils # (Auto) (test code = 751-8) 5.4 2.1-6.9 [facility] CenterLymphocytes # (Auto)2018-08-26 22:15:00* Test Item Value Reference Range Interpretation Comments Lymphocytes # (Auto) (test code = 35428-6) 0.6 1.0-3.2 L [facility] CenterMonocytes # (Auto)2018-08-26 22:15:00* Test Item Value Reference Range Interpretation Comments Monocytes # (Auto) (test code = 742-7) 0.8 0.2-0.8 [facility] CenterEosinophils # (Auto)2018-08-26 22:15:00* Test Item Value Reference Range Interpretation Comments Eosinophils # (Auto) (test code = 711-2) 0.1 0.0-0.4 [facility] CenterBasophils # (Auto)2018-08-26 22:15:00* Test Item Value Reference Range Interpretation Comments Basophils # (Auto) (test code = 704-7) 0.1 0.0-0.1 [facility] CenterAbsolute Immature Granulocyte (auto 2018-08-26 22:15:00* Test Item Value Reference Range Interpretation Comments Absolute Immature Granulocyte (auto (bronson t code = Absolute Immature Granulocyte (auto) 0.04 0-0.1 [facility] CenterBASIC METABOLIC [id number] 20:40:00 * Test Item Value Reference Range Interpretation Comments SODIUM (test code = NA) 139 mmol/L 136-145 N POTASSIUM (test code = K) 3.7 mmol/L 3.5-5.1 N CHLORIDE (test code = CL) 106.0 mmol/L 98-107 N CARBON DIOXIDE (test code = CO2) 25.0 mmol/L 21-32 N ANION GAP (test code = GAP) 11.7 10-20 N GLUCOSE (test code = GLU) 139 mg/dL 74-106 H BLOOD UREA NITROGEN (test code = BUN) 12 mg/dL 7-18 N GLOMERULAR FILTRATION RATE (test code = GFR) > 60 mL/min >=60 Estimated GFR by using Modified MDRD formula.Chronic kidney disease is defined as either kidney damageor GFR <60 mL/min/1.73 m2 for >3 months. CREATININE (test code = CREAT) 1.00 mg/dL 0.7-1.3 N BUN/CREATININE RATIO (test code = BUN/CREA) 12.0 10-20 N CALCIUM (test code = CA) 9.1 mg/dL 8.5-10.1 N CBC W/O [id number] 20:35:00* Test Item Value Reference Range Interpretation Comments WHITE BLOOD CELL (test code = WBC) 6.9 K/mm3 4.5-12.5 N RED BLOOD CELL (test code = RBC) 4.02 mill/mm3 4.0-5.8 N HEMOGLOBIN (test code = HGB) 13.7 gram/dL 13.0-17.5 N HEMATOCRIT (test code = HCT) 40.3 % 42.0-52.0 L MEAN CELL VOLUME (test code = MCV) 100.2 fL 80-98 H MEAN CELL HGB (test code = MCH) 34.1 picogram 27.0-33.0 H MEAN CELL HGB CONCETRATION (test code = MCHC) 34.0 gram/dL 33.0-36. 0 N RED CELL DISTRIBUTION WIDTH (test code = RDW) 12.9 % 11.6-16. 2 N PLATELET COUNT (test code = PLT) 207 K/mm3 150-450 N MEAN PLATELET VOLUME (test code = MPV) 10.3 fL 6.7-11.0 N [id number] 21:00:00* Test Item Value Reference Range Interpretation Comments GLUBED (test code = GLUBED) 78 mg/dL 74-106 N Performed by certified second operator at [facility] [place] BASIC METABOLIC [id number] 19:01:00* Test Item Value Reference Range Interpretation Comments SODIUM (test code = NA) 140 mmol/L 136-145 N POTASSIUM (test code = K) 3.8 mmol/L 3.5-5.1 N CHLORIDE (test code = CL) 105.0 mmol/L 98-107 N CARBON DIOXIDE (test code = CO2) 26.0 mmol/L 21-32 N ANION GAP (test code = GAP) 12.8 10-20 N GLUCOSE (test code = GLU) 189 mg/dL 74-106 H BLOOD UREA NITROGEN (test code = BUN) 7 mg/dL 7-18 N GLOMERULAR FILTRATION RATE (test code = GFR) > 60 mL/min >=60 Estimated GFR by using Modified MDRD formula.Chronic kidney disease is defined as either kidney damageor GFR <60 mL/min/1.73 m2 for >3 months. CREATININE (test code = CREAT) 0.90 mg/dL 0.7-1.3 N BUN/CREATININE RATIO (test code = BUN/CREA) 7.4 10-20 L CALCIUM (test code = CA) 8.9 mg/dL 8.5-10.1 N BASIC METABOLIC [id number] 18:53:00* Test Item Value Reference Range Interpretation Comments SODIUM (test code = NA) 140 mmol/L 136-145 N POTASSIUM (test code = K) 3.8 mmol/L 3.5-5.1 N CHLORIDE (test code = CL) 105.0 mmol/L 98-107 N CARBON DIOXIDE (test code = CO2) mmol/L 21-32 ANION GAP (test code = GAP) 10-20 GLUCOSE (test code = GLU) mg/dL 74-106 BLOOD UREA NITROGEN (test code = BUN) mg/dL 7-18 GLOMERULAR FILTRATION RATE (test code = GFR) mL/min >=60 CREATININE (test code = CREAT) mg/dL 0.7-1.3 BUN/CREATININE RATIO (test code = BUN/CREA) 10-20 CALCIUM (test code = CA) 8.9 mg/dL 8.5-10.1 N CBC W/O [id number] 18:37:00* Test Item Value Reference Range Interpretation Comments WHITE BLOOD CELL (test code = WBC) 6.1 K/mm3 4.5-12.5 N RED BLOOD CELL (test code = RBC) 4.49 mill/mm3 4.0-5.8 N HEMOGLOBIN (test code = HGB) 15.3 gram/dL 13.0-17.5 N HEMATOCRIT (test code = HCT) 45.7 % 42.0-52.0 N MEAN CELL VOLUME (test code = MCV) 101.8 fL 80-98 H MEAN CELL HGB (test code = MCH) 34.1 picogram 27.0-33.0 H MEAN CELL HGB CONCETRATION (test code = MCHC) 33.5 gram/dL 33.0-36. 0 N RED CELL DISTRIBUTION WIDTH (test code = RDW) 12.4 % 11.6-16. 2 N PLATELET COUNT (test code = PLT) 213 K/mm3 150-450 N MEAN PLATELET VOLUME (test code = MPV) 10.0 fL 6.7-11.0 N
== END 2019-11-27 00:35 | disposition home or self-care (01) ==
LOC: ER 23:20
DX: G40.909 Epilepsy, unspecified, not intractable, without status epilepticus (principal)
CPT/HCPCS: 36415; 80053; 80307; 81001; 82948; 85025; 99283; J7030